=== PATIENT | male | born 1960 | race Caucasian/White ===

== ENCOUNTER 2025-04-18 13:34 | Inpatient (IN) | payer SELFPAY ==
[2025-04-18] VITALS (88 sets, daily range): BP systolic 104–190; BP diastolic 64–115; PULSE 95–119; RESP 7–28; TEMP 35.6–37.6; O2SAT 88–99; BMI 26.6
--- NOTE | 2025-04-18 13:39 | DI.CT.S_ITS ---
PROCEDURE: CT CHEST ABD PEL W CON INDICATIONS: TRUAMA TECHNIQUE: After the administration of intravenous contrast, 5 mm thick sections acquired from the lung apices to the symphysis. 2.5 mm thick coronal and sagittal reformats were acquired. Additional 7 mm thick coronal maximum intensity projection (MIP) reformats acquired through the lungs. Optional 10-minute delayed imaging may be performed from the kidneys to the bladder. For radiation dose reduction, the following was used: automated exposure control, adjustment of mA and/or kV according to patient size. COMPARISON: None. FINDINGS: Image quality: Motion degraded. CHEST: Lower Neck: No enlarged lymph nodes. Thyroid: No thyroid nodules which require sonographic evaluation. Axillae: No enlarged lymph nodes. Chest Wall: No subcutaneous gas. Lungs and Pleura: No pulmonary contusions or lacerations. Patchy ground-glass and mild consolidative opacities within the left upper lobe. Mild opacities at the right lung base. Left lower lobe subpleural nodule measuring 6 mm. Few additional pulmonary micro nodules measuring 3 mm or less. No pneumothorax or hemothorax. Mediastinum: No mediastinal hematomas. Heart size is normal. No pericardial effusion. Thoracic aorta and pulmonary arteries demonstrate normal size and enhancement. No mediastinal or hilar adenopathy. Esophagus is normal in caliber. No hiatal hernia. ABDOMEN: Liver: No lacerations. Gallbladder: No radiopaque gallstones or wall thickening. Biliary ducts: No biliary dilation. Pancreas: Homogenous enhancement. Spleen: Homogenous enhancement without laceration or hematoma. Adrenal Glands: Symmetric enhancement. Indeterminate left adrenal nodule measuring 1.7 cm. Kidneys and Ureters: Symmetric enhancement. No hydronephrosis. No solid mass. No complex renal cystic lesion which requires follow up. Stomach and Bowel: Normal colonic caliber, without significant wall thickening. Diverticulosis without evidence of acute diverticulitis. Normal appendix. Peritoneum: No abnormal intraperitoneal fluid. No free air. Ventral Wall: No hernia. Abdominal Nodes: No retroperitoneal or mesenteric adenopathy by size criteria. Vessels: Aorta and inferior vena cava are normal in size. Atherosclerotic vascular calcifications. PELVIS: Pelvic Organs: Right testicle appears to be within the inguinal canal. Bladder: Decompressed with a Forte catheter in place, limiting evaluation. Pelvic Nodes: No enlarged lymph nodes. Miscellaneous: No inguinal hernias are seen. Bones: Pelvic ring and hip joints appear intact. No displaced rib fractures. IMPRESSION: 1. No evidence of traumatic injury to the chest, abdomen or pelvis. 2. Opacities within the left upper lobe and right lung base concerning for infection, recommend follow-up imaging. 3. Left lower lobe lobe subpleural nodule measuring 6 mm. Recommend follow-up CT chest in 6-12 months. 4. Indeterminate left adrenal nodule measuring 1.7 cm, recommend nonurgent adrenal protocol MRI or CT. 5. The right testicle appears to be within the inguinal canal, recommend correlation with physical exam for undescended testicle. Approved by: Sammy Bryan M.D. on 04/18/2025 at 15:24
--- NOTE | 2025-04-18 13:43 | ED.AMS ---
HPI - Altered Mental Status General Chief Complaint: Altered Mental Status Stated Complaint: AMS Time Seen by Provider: 04/18/25 13:39 History of Present Illness HPI narrative: Patient brought in by ambulance from local hotel for altered mental status. Blood sugar 84. Welfare check/call was made as patient was last seen yesterday. EMS state they arrived to find him in pronate position on the floor with feces and urine on him. There was a bottle of vodka next to him. Patient is only able to answer his name. He screams out very loudly and uncontrollably. Patient is striking out with his fist towards staff. At times he has escalated with agitation. There is black likely coffee-ground emesis covering his face and mouth hand inside his mouth. No gross deformities of the extremities although he points towards his pelvis as source of pain. Patient arrives by EMS naked. Daughter is at bedside. Daughter states patient just arrived from [place] last . He is here because his sister, is in hospice. Daughter states patient has no history of heart attack strokes diabetes seizures alcohol abuse liver disease drug abuse or alcohol abuse. This is never happened to him before. She dropped him off at 7:00 p.m. last night at the hotel. Related Data Allergies Allergy/AdvReac Type Severity Reaction Status Date / Time No Allergy Information Allergy Unverified 04/18/25 15:47 Available Review of Systems Review of Systems Narrative: GENERAL: Negative chills, fatigue, malaise, fever, sweats. HEENT: Negative sinus pain, ear pain, sore throat RESPIRATORY: Negative dyspnea, cough CARDIOVASCULAR: Negative chest pain, palpitations GASTROINTESTINAL: Positive vomiting, nausea, abdominal pain : Negative dysuria, frequency, hematuria MUSCULOSKELETAL: Negative muscle or bony pain SKIN: Negative rash, skin lesions NEUROLOGIC: Negative weakness, numbness Psychiatric: Positive anxiety positive agitation ROS Unobtainable: All systems reviewed & are unremarkable except as noted in HPI and below Patient History Social History Smoking Status: Unknown if ever smoked Exam Narrative Exam Narrative: GENERAL: in no distress, not toxic not dyspneic HEAD: Normocephalic. EYES: Pupils equal round ENT: Mucous membranes moist. NECK: Trachea midline. CARDIOVASCULAR: Regular rate and rhythm RESPIRATORY: Clear to auscultation. Breath sounds equal bilaterally. No wheezes, rales, or rhonchi. GASTROINTESTINAL: Abdomen soft, non-tender, examination of the genitalia. Both testicles are in the scrotal sac. BACK: No flank tenderness. EXTREMITIES: No gross deformities. NEURO: Patient answers to his name. He will say his name. It is clear but at times slurred. No facial droop moving all 4 extremities but needs redirecting. SKIN: Warm and dry PSYCH: Patient is anxious. He needs constant redirecting. Initial Vital Signs Initial Vital Signs: Vital Signs Pulse Oximetry 99 04/18/25 13:37 Course Orders Ordered: Sodium Chloride (Normal Saline 0.9%) 1,000 mls @ 100 mls/hr IV CONT LINDY Last Admin: 04/18/25 18:24 Dose: 100 mls/hr Documented By: RLC Thiamine HCl 100 mg/ Sodium (Chloride) 101 mls @ 404 mls/hr IV DAILY LINDY Piperacillin Sod/Tazobactam (Sod 3.375 gm/ Sodium Chloride) 100 mls @ 25 mls/hr IV Q8H LINDY Last Infusion: 04/19/25 06:40 Dose: Infused Documented By: Admin: 04/19/25 02:37 Dose: 25 mls/hr Documented By: FM Vancomycin HCl (Vancomycin) 1,000 mg in 200 mls @ 200 mls/hr IV Q32H LINDY Midazolam HCl 50 mg/ Dextrose 50 mls @ 5 mls/hr IV TITRATE PRN; Protocol PRN Reason: Sedation Last Admin: 04/19/25 08:11 Dose: 1 mg/hr, 1 mls/hr Documented By: FM Propofol (Diprivan) 1,000 mg in 100 mls @ 2.523 mls/hr IV NOW ONE; Protocol Stop: 04/20/25 23:46 Last Titration: 04/19/25 08:18 Dose: 25 mcg/kg/min, 12.615 mls/hr Documented By: Admin: 04/19/25 07:30 Dose: 5 mcg/kg/min, 2.523 mls/hr Documented By: FM NOREPINEPHRINE BIT/0.9 % NACL (Norepinephr 4 Mg/250-0.9% Nacl) 4 mg in 250 mls @ 31.538 mls/hr IV TITRATE LINDY; Protocol Last Admin: 04/19/25 08:22 Dose: 0.1 mcg/kg/min, 31.538 mls/hr Documented By: FM Lactulose (Lactulose 20 Gm/30 Ml Solution) 20 gm PO TID [facility] Last Admin: 04/19/25 02:27 Dose: Not Given Documented By: Admin: 04/18/25 18:41 Dose: Not Given Documented By: BRITTA Lorazepam (Lorazepam 2 Mg/Ml Inj) 0 mg IV CIWAPRN PRN; Protocol PRN Reason: Alcohol Withdrawal Lorazepam (Lorazepam 1 Mg Tablet) 0 mg PO CIWAPRN PRN; Protocol PRN Reason: Alcohol Withdrawal Multivitamins (Multivitamin 1 Tablet) 1 tab PO DAILY [facility] Naloxone HCl (Naloxone 0.4 Mg/Ml Vial) 0.2 mg IV Q2MIN PRN PRN Reason: Opiate Reversal Pantoprazole Sodium (Pantoprazole 40 Mg Vial) 40 mg IV BID [facility] Last Admin: 04/19/25 00:05 Dose: 40 mg Documented By: DONTE Vancomycin HCl (Vancomycin Per Pharmacy) 1 request MISC NOW PRN PRN Reason: Sepsis Vancomycin HCl (Vancomycin Trough) 1 request MISC 2030 LINDY Stop: 04/22/25 20:31 Discontinued Medications Haloperidol (Haloperidol 5 Mg/Ml Vial) 5 mg IM NOW ONE Stop: 04/18/25 13:50 Last Admin: 04/18/25 13:54 Dose: 5 mg Documented By: BRITTA Haloperidol (Haloperidol 5 Mg/Ml Vial) 5 mg IV Q1HR PRN PRN Reason: Hallucinations Heparin Sodium (Porcine) (Heparin 5,000 Unit/Ml Vial) 5,000 unit SUBCUT Q8HR [facility] Sodium Chloride (Normal Saline 0.9%) 1,000 mls @ 1,000 mls/hr IV BOLUS ONE Stop: 04/18/25 16:18 Last Infusion: 04/18/25 17:03 Dose: Infused Documented By: Admin: 04/18/25 15:35 Dose: 1,000 mls/hr Documented By: BRITTA dexmedeTOMIDine in 0.9 % NaCL (Precedex) 400 mcg in 100 mls @ 4.205 mls/hr IV PROTOCOL [facility]; Protocol Piperacillin Sod/Tazobactam (Sod 3.375 gm/ Sodium Chloride) 100 mls @ 25 mls/hr IV Q8H [facility] Last Infusion: 04/19/25 00:44 Dose: Infused Documented By: Admin: 04/18/25 20:43 Dose: 25 mls/hr Documented By: DONTE Vancomycin HCl/Dextrose (Vancomycin) 1,500 mg in 300 mls @ 150 mls/hr IV NOW LINDY Stop: 04/19/25 02:00 Piperacillin Sod/Tazobactam (Sod 3.375 gm/ Sodium Chloride) 100 mls @ 200 mls/hr IV NOW ONE Stop: 04/18/25 21:44 Last Admin: 04/19/25 02:26 Dose: Not Given Documented By: SHANE Lactulose (Lactulose 20 Gm/30 Ml Solution) 20 gm FL NOW ONE Stop: 04/18/25 16:34 Last Admin: 04/18/25 17:03 Dose: 20 gm Documented By: KLEVER Lorazepam (Lorazepam 2 Mg/Ml Inj) 2 mg IV NOW ONE Stop: 04/18/25 13:40 Last Admin: 04/18/25 13:48 Dose: 2 mg Documented By: BRITTA Phenobarbital (Phenobarbital 65 Mg/Ml Vial) 65 mg IV Q6H LINDY Stop: 04/21/25 17:44 Last Admin: 04/18/25 18:24 Dose: 65 mg Documented By: BRITTA Vital Signs Vital signs: Vital Signs - 8 hr 04/18/25 13:37 04/18/25 13:42 04/18/25 13:45 Temperature Pulse Rate 95 H 97 H Respiratory Rate 24 23 Blood Pressure Pulse Oximetry 99 Oxygen Delivery Method Oxygen Flow Rate 04/18/25 13:45 04/18/25 13:50 04/18/25 13:51 Temperature Pulse Rate 110 H 101 H Respiratory Rate 24 21 Blood Pressure 131/97 H 130/100 H Pulse Oximetry 88 L 97 Oxygen Delivery Method Room Air Oxygen Flow Rate 04/18/25 13:51 04/18/25 13:55 04/18/25 14:00 Temperature Pulse Rate 101 H 107 H 112 H Respiratory Rate 24 28 H 23 Blood Pressure Pulse Oximetry 94 95 93 Oxygen Delivery Method Oxygen Flow Rate 04/18/25 14:05 04/18/25 14:05 04/18/25 14:10 Temperature Pulse Rate 114 H 117 H Respiratory Rate 19 20 Blood Pressure 141/96 H Pulse Oximetry 95 94 Oxygen Delivery Method Oxygen Flow Rate 04/18/25 14:11 04/18/25 14:11 04/18/25 14:15 Temperature Pulse Rate 116 H Respiratory Rate 18 Blood Pressure 190/115 H 188/98 H Pulse Oximetry 94 Oxygen Delivery Method Oxygen Flow Rate 04/18/25 14:15 04/18/25 14:20 04/18/25 14:20 Temperature Pulse Rate 114 H 113 H Respiratory Rate 16 16 Blood Pressure 187/77 H Pulse Oximetry 94 Oxygen Delivery Method Oxygen Flow Rate 04/18/25 14:25 04/18/25 14:25 04/18/25 14:28 Temperature Pulse Rate 109 H 113 H Respiratory Rate 15 18 Blood Pressure 167/74 H Pulse Oximetry 95 93 Oxygen Delivery Method Oxygen Flow Rate 04/18/25 14:28 04/18/25 14:30 04/18/25 14:30 Temperature Pulse Rate 112 H Respiratory Rate 13 Blood Pressure 163/70 H 173/82 H Pulse Oximetry 92 Oxygen Delivery Method Oxygen Flow Rate 04/18/25 14:35 04/18/25 14:35 04/18/25 14:40 Temperature Pulse Rate 109 H 107 H Respiratory Rate 12 12 Blood Pressure 166/88 H Pulse Oximetry 96 92 Oxygen Delivery Method Oxygen Flow Rate 04/18/25 14:40 04/18/25 14:45 04/18/25 14:45 Temperature Pulse Rate 104 H Respiratory Rate 19 Blood Pressure 156/76 H 154/82 H Pulse Oximetry 91 Oxygen Delivery Method Oxygen Flow Rate 04/18/25 14:50 04/18/25 14:50 04/18/25 14:55 Temperature 96.1 F L Pulse Rate 100 H 100 H Respiratory Rate 16 17 Blood Pressure 160/87 H Pulse Oximetry 95 95 Oxygen Delivery Method Oxygen Flow Rate 04/18/25 14:55 04/18/25 15:00 04/18/25 15:00 Temperature Pulse Rate 101 H Respiratory Rate 17 Blood Pressure 153/83 H 148/75 H Pulse Oximetry 95 Oxygen Delivery Method Oxygen Flow Rate 04/18/25 15:05 04/18/25 15:05 04/18/25 15:10 Temperature Pulse Rate 100 H 100 H Respiratory Rate 15 8 L Blood Pressure 140/69 Pulse Oximetry 95 96 Oxygen Delivery Method Oxygen Flow Rate 04/18/25 15:10 04/18/25 15:15 04/18/25 15:15 Temperature Pulse Rate 100 H Respiratory Rate 7 L Blood Pressure 132/64 134/70 Pulse Oximetry 96 Oxygen Delivery Method Oxygen Flow Rate 04/18/25 15:17 04/18/25 15:17 04/18/25 15:18 Temperature Pulse Rate 101 H 101 H Respiratory Rate 7 L 8 L Blood Pressure 140/74 Pulse Oximetry 96 96 Oxygen Delivery Method Oxygen Flow Rate 04/18/25 15:18 04/18/25 15:19 04/18/25 15:19 Temperature Pulse Rate 101 H Respiratory Rate 10 L Blood Pressure 134/68 129/69 Pulse Oximetry 96 Oxygen Delivery Method Oxygen Flow Rate 04/18/25 15:20 04/18/25 15:20 04/18/25 15:21 Temperature Pulse Rate 102 H 101 H Respiratory Rate 10 L 16 Blood Pressure 126/72 Pulse Oximetry 96 97 Oxygen Delivery Method Oxygen Flow Rate 04/18/25 15:21 04/18/25 15:22 04/18/25 15:22 Temperature Pulse Rate 101 H Respiratory Rate 15 Blood Pressure 127/69 135/70 Pulse Oximetry 96 Oxygen Delivery Method Oxygen Flow Rate 04/18/25 15:25 04/18/25 15:30 04/18/25 15:30 Temperature Pulse Rate 101 H 101 H Respiratory Rate 9 L 8 L Blood Pressure 132/73 Pulse Oximetry 96 96 Oxygen Delivery Method Oxygen Flow Rate 04/18/25 15:35 04/18/25 15:40 04/18/25 15:45 Temperature Pulse Rate 102 H 101 H 101 H Respiratory Rate 8 L 8 L 8 L Blood Pressure Pulse Oximetry 95 95 95 Oxygen Delivery Method Oxygen Flow Rate 04/18/25 15:45 04/18/25 15:50 04/18/25 15:55 Temperature Pulse Rate 101 H 101 H Respiratory Rate 8 L 8 L Blood Pressure 128/70 Pulse Oximetry 96 96 Oxygen Delivery Method Oxygen Flow Rate 04/18/25 16:00 04/18/25 16:00 04/18/25 16:15 Temperature Pulse Rate 100 H Respiratory Rate 8 L Blood Pressure 137/71 134/73 Pulse Oximetry 96 Oxygen Delivery Method Nasal Cannula Oxygen Flow Rate 1 04/18/25 16:15 04/18/25 16:30 04/18/25 16:30 Temperature 99.7 F H Pulse Rate 102 H 101 H Respiratory Rate 8 L 9 L Blood Pressure 143/78 H Pulse Oximetry 94 96 Oxygen Delivery Method Nasal Cannula Oxygen Flow Rate 1 MDM - Altered Mental Status Lab Data 04/19/25 04:23 04/19/25 04:23 Labs: Lab Results 1004/18/25 04/18/25 Range/Units 13:30 13:30 13:40 WBC 11.4 H (4.5-11.0) X10^3/uL RBC 5.71 (4.5-5.9) X10^6/uL Hgb 15.5 (13.5-17.5) g/dL Hct 48.7 (41-53) % MCV 85.2 (80-100) fL MCH 27.2 (26-34) PG MCHC 31.9 (30-36) % RDW 13.9 (11.6-14.8) % Plt Count 344 (150-400) X10^3/uL Neut % (Auto) 86.1 H (50-75) % Lymph % (Auto) 4.8 L (25-40) % [place] % (Auto) 8.6 (3-14) % Eos % (Auto) 0.0 L (2-4) % Baso % (Auto) 0.5 (0-2) % Neut # (Auto) 9800 H (3163-3362) /uL Lymph # (Auto) 500 L (2367-0912) /uL [place] # (Auto) 1000 H (0-900) /uL Eos # (Auto) 0 (0-450) /uL Baso # (Auto) 100 (0-100) /uL PT 11.0 (9.4-12.5) SECONDS INR 1.0 (0.9-1.3) APTT 31 (25.1-36.5) SECONDS ABG Sample Site ABG pH (7.35-7.45) ABG pCO2 (35-45) mmHg ABG pO2 (80-100) mmHg ABG HCO3 (23-27) mmol/L ABG Total CO2 (23-27) mmol/L ABG O2 Saturation (95-100) % ABG Base Excess (-2-3) mmol/L Nakul Test VBG pH (7.33-7.43) VBG pCO2 (45-50) mmHg VBG pO2 (35-45) mmHg VBG HCO3 (24-28) mmol/L VBG Total CO2 (24-29) mmol/L VBG O2 Saturation (70-75) % VBG Base Excess (0-4) mmol/L Sodium (137-145) mmol/L Potassium (3.4-5.1) mmol/L Chloride (98-107) mmol/L Carbon Dioxide (22-32) mmol/L BUN (9-20) mg/dL Creatinine (0.66-1.25) mg/dL Estimated GFR (>60) mL/min BUN/Creatinine Ratio (6-22) Glucose (70-99) mg/dL Lactate 5.0 H* (0.7-2.1) mmol/L Calcium (8.4-10.2) mg/dL Total Bilirubin (0.2-1.3) mg/dL AST (17-59) IU/L ALT (<50) IU/L Alkaline Phosphatase (38-126) U/L Ammonia (9-30) umol/L Total Creatine Kinase 6660 H Cancelled (55-170) U/L Troponin I 0.086 H (0.01-0.034) ng/mL Total Protein (6.3-8.2) g/dL Albumin (3.5-5.0) g/dL Globulin (1.7-4.1) g/dL Albumin/Globulin Ratio (1.0-2.8) Lipase (23-300) U/L Procalcitonin 3.41 H (<0.5) ng/mL U Opiates 300ng/mL cut (Negative) Ur Oxycodone Screen (Negative) Urine Methadone Screen (Negative) Ur Barbiturates Screen (Negative) U Tricyclic Antidepress (Negative) Ur Phencyclidine Scrn (Negative) Ur Amphetamines Screen (Negative) U Methamphetamines Scrn (Negative) Ur MDMA Scrn (Ecstasy) (Negative) U Benzodiazepines Scrn (Negative) Urine Cocaine Screen (Negative) U Marijuana (THC) Screen (Negative) Urine pH (Normal) Urine Specific [place] (Normal) Ethyl Alcohol < 10 (<10) mg/dL Ur Creatinine (Normal) Blood Type B Positive Antibody Screen Negative 04/18/25 04/18/25 04/18/25 Range/Units 13:53 14:10 14:15 WBC (4.5-11.0) X10^3/uL RBC (4.5-5.9) X10^6/uL Hgb (13.5-17.5) g/dL Hct (41-53) % MCV (80-100) fL MCH (26-34) PG MCHC (30-36) % RDW (11.6-14.8) % Plt Count (150-400) X10^3/uL Neut % (Auto) (50-75) % Lymph % (Auto) (25-40) % [place]ades % (Auto) (3-14) % Eos % (Auto) (2-4) % Baso % (Auto) (0-2) % Neut # (Auto) (0302-2135) /uL Lymph # (Auto) (5211-9265) /uL [place] # (Auto) (0-900) /uL Eos # (Auto) (0-450) /uL Baso # (Auto) (0-100) /uL PT (9.4-12.5) SECONDS INR (0.9-1.3) APTT (25.1-36.5) SECONDS ABG Sample Site ABG pH (7.35-7.45) ABG pCO2 (35-45) mmHg ABG pO2 (80-100) mmHg ABG HCO3 (23-27) mmol/L ABG Total CO2 (23-27) mmol/L ABG O2 Saturation (95-100) % ABG Base Excess (-2-3) mmol/L Nakul Test VBG pH (7.33-7.43) VBG pCO2 (45-50) mmHg VBG pO2 (35-45) mmHg VBG HCO3 (24-28) mmol/L VBG Total CO2 (24-29) mmol/L VBG O2 Saturation (70-75) % VBG Base Excess (0-4) mmol/L Sodium 143 (137-145) mmol/L Potassium 5.2 H (3.4-5.1) mmol/L Chloride 105 (98-107) mmol/L Carbon Dioxide 16 L (22-32) mmol/L BUN 31 H (9-20) mg/dL Creatinine 2.10 H (0.66-1.25) mg/dL Estimated GFR 35 L (>60) mL/min BUN/Creatinine Ratio 14.8 (6-22) Glucose 100 H (70-99) mg/dL Lactate (0.7-2.1) mmol/L Calcium 8.6 (8.4-10.2) mg/dL Total Bilirubin 0.6 (0.2-1.3) mg/dL AST 128 H (17-59) IU/L ALT 74 H (<50) IU/L Alkaline Phosphatase 73 (38-126) U/L Ammonia 86 H (9-30) umol/L Total Creatine Kinase (55-170) U/L Troponin I (0.01-0.034) ng/mL Total Protein 8.1 (6.3-8.2) g/dL Albumin 4.8 (3.5-5.0) g/dL Globulin 3.3 (1.7-4.1) g/dL Albumin/Globulin Ratio 1.5 (1.0-2.8) Lipase 103 (23-300) U/L Procalcitonin (<0.5) ng/mL U Opiates 300ng/mL cut Positive H (Negative) Ur Oxycodone Screen Negative (Negative) Urine Methadone Screen Positive H (Negative) Ur Barbiturates Screen Negative (Negative) U Tricyclic Antidepress Negative (Negative) Ur Phencyclidine Scrn Negative (Negative) Ur Amphetamines Screen Positive H (Negative) U Methamphetamines Scrn Positive H (Negative) Ur MDMA Scrn (Ecstasy) Positive H (Negative) U Benzodiazepines Scrn Negative (Negative) Urine Cocaine Screen Negative (Negative) U Marijuana (THC) Screen Negative (Negative) Urine pH Normal (Normal) Urine Specific [place] Normal (Normal) Ethyl Alcohol (<10) mg/dL Ur Creatinine Normal (Normal) Blood Type Antibody Screen 04/18/25 04/18/25 04/18/25 Range/Units 14:17 14:39 15:47 WBC (4.5-11.0) X10^3/uL RBC (4.5-5.9) X10^6/uL Hgb (13.5-17.5) g/dL Hct (41-53) % MCV (80-100) fL MCH (26-34) PG MCHC (30-36) % RDW (11.6-14.8) % Plt Count (150-400) X10^3/uL Neut % (Auto) (50-75) % Lymph % (Auto) (25-40) % Glades % (Auto) (3-14) % Eos % (Auto) (2-4) % Baso % (Auto) (0-2) % Neut # (Auto) (7783-9605) /uL Lymph # (Auto) (4904-1455) /uL [place] # (Auto) (0-900) /uL Eos # (Auto) (0-450) /uL Baso # (Auto) (0-100) /uL PT (9.4-12.5) SECONDS INR (0.9-1.3) APTT (25.1-36.5) SECONDS ABG Sample Site Right radial ABG pH 7.21 L* (7.35-7.45) ABG pCO2 46.8 H (35-45) mmHg ABG pO2 55 L (80-100) mmHg ABG HCO3 19 L (23-27) mmol/L ABG Total CO2 18 L (23-27) mmol/L ABG O2 Saturation 81 L* (95-100) % ABG Base Excess -9.0 L (-2-3) mmol/L Nakul Test Yes, passed VBG pH 7.14 L* (7.33-7.43) VBG pCO2 57.1 H (45-50) mmHg VBG pO2 39 (35-45) mmHg VBG HCO3 19 L (24-28) mmol/L VBG Total CO2 19 L (24-29) mmol/L VBG O2 Saturation 56 L (70-75) % VBG Base Excess -10.5 L (0-4) mmol/L Sodium (137-145) mmol/L Potassium (3.4-5.1) mmol/L Chloride (98-107) mmol/L Carbon Dioxide (22-32) mmol/L BUN (9-20) mg/dL Creatinine (0.66-1.25) mg/dL Estimated GFR (>60) mL/min BUN/Creatinine Ratio (6-22) Glucose (70-99) mg/dL Lactate 2.1 (0.7-2.1) mmol/L Calcium (8.4-10.2) mg/dL Total Bilirubin (0.2-1.3) mg/dL AST (17-59) IU/L ALT (<50) IU/L Alkaline Phosphatase (38-126) U/L Ammonia (9-30) umol/L Total Creatine Kinase (55-170) U/L Troponin I (0.01-0.034) ng/mL Total Protein (6.3-8.2) g/dL Albumin (3.5-5.0) g/dL Globulin (1.7-4.1) g/dL Albumin/Globulin Ratio (1.0-2.8) Lipase (23-300) U/L Procalcitonin (<0.5) ng/mL U Opiates 300ng/mL cut (Negative) Ur Oxycodone Screen (Negative) Urine Methadone Screen (Negative) Ur Barbiturates Screen (Negative) U Tricyclic Antidepress (Negative) Ur Phencyclidine Scrn (Negative) Ur Amphetamines Screen (Negative) U Methamphetamines Scrn (Negative) Ur MDMA Scrn (Ecstasy) (Negative) U Benzodiazepines Scrn (Negative) Urine Cocaine Screen (Negative) U Marijuana (THC) Screen (Negative) Urine pH (Normal) Urine Specific [place] (Normal) Ethyl Alcohol (<10) mg/dL Ur Creatinine (Normal) Blood Type Antibody Screen Point of Care Testing Glucose POC [address] scan - head: Radiologist's Impression: [address] [address] [address] Scan Report Signed Patient: Beka Phoenix MR#: [id number] : 1960 Acct:[id number] Age/Sex: 64 / M Date of Service: 04/18/25 Loc: ED Accession Number: [id number] Procedure: CT head/brain wo con Ordering Provider: Anibal Mary MD PROCEDURE: CT HEAD/BRAIN WO CON INDICATIONS: Trauma TECHNIQUE: Noncontrast 4.5 mm thick angled axial sections acquired from the foramen magnum to the vertex, with coronal and sagittal reformats. For radiation dose reduction, the following was used: automated exposure control, adjustment of mA and/or kV according to patient size. COMPARISON: [facility], CT, CT CERVICAL SPINE WO CON, 04/18/2025, 14:22. FINDINGS: Image quality: This examination is limited by involuntary motion artifact. Images are repeated, with some improvement. CSF spaces: Basal cisterns are patent. No extra-axial fluid collections. The ventricles are symmetric in size and shape. Brain: No intracranial bleeds or mass effect. There is cerebral volume loss, with resultant ventricular and sulcal prominence. There are periventricular and deep white matter chronic small vessel ischemic changes. There is intracranial internal carotid artery atherosclerosis. Skull and face: Calvarium and visualized facial bones appear intact, without suspicious lesions. Sinuses: Scattered moderate mucosal thickening can be seen within the maxillary sinuses. Minimal mucosal thickening can be seen elsewhere within the paranasal sinuses. No abnormal fluid is seen within the mastoid air cells. IMPRESSION: Motion limited study, yet without acute intracranial hemorrhage or other significant acute abnormality. Dictated by: Umer Graham M.D. on 04/18/2025 at 13:32 Approved by: Umer Graham M.D. on 04/18/2025 at 13:33 CT - cervical spine: Radiologist's Impression: [place] [address] CT Scan Report Signed Patient: Beka Phoenix MR#: [id number] : 1960 Acct:[id number] Age/Sex: 64 / M Date of Service: 04/18/25 Loc: ED Accession Number: [id number] Procedure: CT cervical spine wo con Ordering Provider: Anibal Mary MD PROCEDURE: CT CERVICAL SPINE WO CON INDICATIONS: Trauma TECHNIQUE: Noncontrast 3 mm thick sections acquired from the skull base to the T4 level. Sagittal and coronal reformats were then constructed. For radiation dose reduction, the following was used: automated exposure control, adjustment of mA and/or kV according to patient size. COMPARISON: None. FINDINGS: Image quality: Diagnostic. Bones: No acute fractures or dislocations. No acute compression fractures of the vertebral bodies. Craniocervical junction is intact. C1-C2 relationship is preserved. Visualized superior ribs are intact. Moderate multilevel cervical spondylosis. Soft tissues: Prevertebral soft tissues are normal in thickness. No paravertebral hematomas. No apical pneumothoraces. IMPRESSION: No displaced fracture or traumatic subluxation. Moderate multilevel cervical spondylosis. Dictated by: North Barraza M.D. on 04/18/2025 at 15:29 Approved by: North Barraza M.D. on 04/18/2025 at 15:32 CT chest abdomen pelvis: Radiologist's Impression: [address] [address] [address] Scan Report Signed Patient: Beka Phoenix MR#: [id number] : 1960 Acct:[id number] Age/Sex: 64 / M Date of Service: 04/18/25 Loc: ED Accession Number: [id number] Procedure: CT chest abd pel w con Ordering Provider: Anibal Mary MD PROCEDURE: CT CHEST ABD PEL W CON INDICATIONS: TRUAMA TECHNIQUE: After the administration of intravenous contrast, 5 mm thick sections acquired from the lung apices to the symphysis. 2.5 mm thick coronal and sagittal reformats were acquired. Additional 7 mm thick coronal maximum intensity projection (MIP) reformats acquired through the lungs. Optional 10-minute delayed imaging may be performed from the kidneys to the bladder. For radiation dose reduction, the following was used: automated exposure control, adjustment of mA and/or kV according to patient size. COMPARISON: None. FINDINGS: Image quality: Motion degraded. CHEST: Lower Neck: No enlarged lymph nodes. Thyroid: No thyroid nodules which require sonographic evaluation. Axillae: No enlarged lymph nodes. Chest Wall: No subcutaneous gas. Lungs and Pleura: No pulmonary contusions or lacerations. Patchy ground-glass and mild consolidative opacities within the left upper lobe. Mild opacities at the right lung base. Left lower lobe subpleural nodule measuring 6 mm. Few additional pulmonary micro nodules measuring 3 mm or less. No pneumothorax or hemothorax. Mediastinum: No mediastinal hematomas. Heart size is normal. No pericardial effusion. Thoracic aorta and pulmonary arteries demonstrate normal size and enhancement. No mediastinal or hilar adenopathy. Esophagus is normal in caliber. No hiatal hernia. ABDOMEN: Liver: No lacerations. Gallbladder: No radiopaque gallstones or wall thickening. Biliary ducts: No biliary dilation. Pancreas: Homogenous enhancement. Spleen: Homogenous enhancement without laceration or hematoma. Adrenal Glands: Symmetric enhancement. Indeterminate left adrenal nodule measuring 1.7 cm. Kidneys and Ureters: Symmetric enhancement. No hydronephrosis. No solid mass. No complex renal cystic lesion which requires follow up. Stomach and Bowel: Normal colonic caliber, without significant wall thickening. Diverticulosis without evidence of acute diverticulitis. Normal appendix. Peritoneum: No abnormal intraperitoneal fluid. No free air. Ventral Wall: No hernia. Abdominal Nodes: No retroperitoneal or mesenteric adenopathy by size criteria. Vessels: Aorta and inferior vena cava are normal in size. Atherosclerotic vascular calcifications. PELVIS: Pelvic Organs: Right testicle appears to be within the inguinal canal. Bladder: Decompressed with a Forte catheter in place, limiting evaluation. Pelvic Nodes: No enlarged lymph nodes. Miscellaneous: No inguinal hernias are seen. Bones: Pelvic ring and hip joints appear intact. No displaced rib fractures. IMPRESSION: 1. No evidence of traumatic injury to the chest, abdomen or pelvis. 2. Opacities within the left upper lobe and right lung base concerning for infection, recommend follow-up imaging. 3. Left lower lobe lobe subpleural nodule measuring 6 mm. Recommend follow-up CT chest in 6-12 months. 4. Indeterminate left adrenal nodule measuring 1.7 cm, recommend nonurgent adrenal protocol MRI or CT. 5. The right testicle appears to be within the inguinal canal, recommend correlation with physical exam for undescended testicle. Approved by: Sammy Bryan M.D. on 04/18/2025 at 15:24 [facility] Narrative Medical decision making narrative: Patient brought in by ambulance from local [facility] for altered mental status. Blood sugar 84. Welfare check/call was made as patient was last seen yesterday. EMS state they arrived to find him in pronate position on the floor with feces and urine on him. There was a bottle of vodka next to him. Patient is only able to answer his name. He screams out very loudly and uncontrollably. Patient is striking out with his fist towards staff. At times he has escalated with agitation. There is black likely coffee-ground emesis covering his face and mouth hand inside his mouth. No gross deformities of the extremities although he points towards his pelvis as source of pain. Patient arrives by EMS naked. Daughter is at bedside. Daughter states patient just arrived from [place] last . He is here because his sister, is in hospice. Daughter states patient has no history of heart attack strokes diabetes seizures alcohol abuse liver disease drug abuse or alcohol abuse. This is never happened to him before. She dropped him off at 7:00 p.m. last night at the hotel. MDM After history and exam, CT head CT angio head and neck CT chest abdomen pelvis EKG CBC CMP ammonia drug screen alcohol level urinalysis PT PTT INR type and screen Differential considered: Includes but not limited to stroke STEMI rhabdomyolysis seizure alcohol withdrawal delirium tremens substance abuse GI bleed hepatic encephalopathy Medical records reviewed: No recent visit for this complaint Lab Test results independently reviewed as above. Pertinent findings: WBC 11.4 hemoglobin 15.5 platelets 344 INR 1.0 ABG 7.2, 46.8, 55 sodium 143 potassium 5.2 BUN 31 creatinine 2.1 GFR 35 lactate 5.0 AST 128 ALT 74 total CK 6660 ammonia 86 troponin 0.086 procalcitonin 3.4 drug screen positive opiates positive methadone positive amphetamines positive methamphetamines positive MDMA alcohol negative Independently reviewed EKG sinus tachycardia rate 102 otherwise normal EKG Imaging studies independently reviewed: CT head no acute finding CT cervical spine no acute finding, CT chest abdomen pelvis no acute finding but possible undescended testicle right inguinal canal Consultations: 4:34 p.m.. I spoke with hospitalist, Dr. Morrison, he will admit patient, I will order lactulose per rectum. You will order Precedex as well as antibiotics for possible aspiration pneumonia. Patient is still requiring soft restraints, I reviewed with him. Soft restraints or not for violent but for pulling at equipment. Re-evaluations: 3:41 p.m.. Patient not agitated this time. However still requiring soft restraints. 4:52 p.m.. Updated daughter results. He will be staying here overnight 5:00 p.m.. Please see agvw-rz-[id number] notes. Restraints discontinued. Orders in to discontinue. Discussion: Appropriate for admission for hepatic encephalopathy altered mental status likely substance induced psychosis, rhabdomyolysis. IV fluids have been started. Troponin likely due to renal function. Acute renal injury Diagnosis: Hepatic encephalopathy, rhabdomyolysis, acute renal injury, polysubstance abuse Discharge Plan Departure Patient Disposition: Admitted As Inpatient Clinical Impression: Acute hepatic encephalopathy, Acute kidney injury Rhabdomyolysis Qualifiers: Rhabdomyolysis type: non-traumatic Qualified Code(s): M62.82 - Rhabdomyolysis GI bleed Qualifiers: GI bleed type/associated pathology: unspecified gastrointestinal hemorrhage type Qualified Code(s): K92.2 - Gastrointestinal hemorrhage, unspecified Admit Date/Time: 04/18/25 16:34 Admit Provider: Mo Morrison Qhkz-ig-Uyaf Restraint Boao-tj-Nbsl Evaluation Nmoi-np-Qjtx #1: Date: 04/18/25 Time: 14:12 Patient Appearance: Unkempt, Disheveled, Bizarre and Inappropriate Level of Consciousness: Disoriented and Inappropriate Speech Pattern: Excessive and Includes Profanity Mood Description: Hostile Ability to Follow Directions: Poor Hallucination Type: None Thought Process: Disorganized Respirations: Normal respiratory rate and Unlabored Cardiac: Regular Rate and Regular Rhythm Circulation: Moves all extremities, peripheral pulses palpable and Skin warm and dry Behavior necessitating restraint: Agitated and Pulling at lines/tubes Restraint Risks: Restricted blood flow, Damaged nerves and Damaged tissue Restraint risks explained to patient: Yes Restraint risks explained to family: Yes Reaction to Intervention: Agitated, Constant Movement Restraint Needs: Continue Restraints Phvl-wm-Fcya #2: Date: 04/18/25 Time: 17:00 Level of Consciousness: Alert, Appropriate, Awake and Follows Commands Speech Pattern: Clear and Coherent Mood Description: Relaxed Ability to Follow Directions: Good Hallucination Type: None Thought Process: Normal Respirations: Normal respiratory rate Cardiac: Regular Rate and Regular Rhythm Circulation: Moves all extremities, peripheral pulses palpable and Skin warm and dry Other risks: Restraints removed Restraint Needs: Discontinue Restraints
[2025-04-18] MEDS: HALOPERIDOL 5 MG/ML VIAL IM (13:54)
--- NOTE | 2025-04-18 13:54 | DI.CT.S_ITS ---
PROCEDURE: CT ANGIO HEAD AND NECK INDICATIONS: Altered mental status TECHNIQUE: After the administration of intravenous contrast, 1 mm thick sections acquired from the aortic arch through the [place] of [place]. 3-dimensional zbtvvyi-oogdbiqfl-fdvusjribo (MIP) and/or volume rendering reformats were acquired of the central intracranial vasculature and neck separately. For radiation dose reduction, the following was used: automated exposure control, adjustment of mA and/or kV according to patient size. COMPARISON: [facility], CT, CT HEAD/BRAIN WO CON, 04/18/2025, 14:22. FINDINGS: Image quality: Diagnostic. BRAIN: CSF spaces: Ventricles are stable in size and configuration. Basal cisterns are patent. No extra-axial fluid collections. Brain: No midline shift. No intracranial masses. No suspicious enhancement. Quintana-white matter interface appears intact. Stable age related senescent changes and sequela of chronic small vessel ischemic disease. Skull and face: Calvarium and facial bones appear intact, without suspicious lesions. Orbits appear normal. Sinuses: Bilateral maxillary sinus mucosal thickening with layering fluid on the left. Mastoid air cells are clear. HEAD CT ANGIOGRAPHY: Anterior circulation: There are atherosclerotic calcifications of the intracranial segments of the internal carotid arteries. Intracranial internal carotid arteries appear patent without high-grade stenosis. There is flow/opacification within the paired anterior cerebral arteries. There is opacification within the middle cerebral arteries. The anterior communicating artery is seen. No aneurysms are seen. No occlusion. Posterior circulation: Visualized portions of the vertebral arteries are patent and join to form a normal appearing basilar artery. No evidence for high-grade stenosis. No occlusions. There is opacification of the posterior cerebral arteries. No aneurysms are seen. NECK CT ANGIOGRAPHY: Carotid system: The great vessels demonstrate a conventional anatomy as they arise from the aortic arch. Atherosclerotic calcifications of the aortic arch are present. The origins of the common carotid arteries appear patent. The common carotid arteries appear patent throughout their visualized courses without high grade stenosis. The bifurcation regions are both patent without high grade stenosis. The internal carotid arteries demonstrate normal calibers and courses. Posterior circulation: The origins of the vertebral arteries both appear patent without hemodynamically significant stenosis. The more superior extracranial portions of both vertebral arteries also demonstrate normal courses and calibers. They join to form a normal appearing basilar artery. Soft tissues: Visualized neck soft tissues demonstrate no suspicious abnormalities. No pathologic adenopathy identified. Upper lobe predominant pulmonary emphysema. Patchy opacity of the left apex with mild tree-in-bud opacities peripherally. Bones: No suspicious bony lesions. Visualized cervical spine appears normally aligned. No acute compression fractures of the vertebral bodies. Moderate multilevel cervical spondylosis. IMPRESSION: No significant intracranial arterial abnormality is seen. No significant abnormality is seen within the arteries of the neck. Patchy opacities of the left lung apex with more peripheral tree-in-bud opacities likely representing infectious or inflammatory process. Recommend short interval follow-up imaging after resolution of acute findings.. Multilevel cervical spondylosis. Atherosclerosis. If there is persistent or high clinical suspicion for acute cerebrovascular ischemia/stroke, more sensitive evaluation with brain MRI can be considered. Any quantitative measurements of stenosis were performed using NASCET criteria. Dictated by: North Barraza M.D. on 04/18/2025 at 15:32 Approved by: North Barraza M.D. on 04/18/2025 at 15:44
[2025-04-18 13:58] LABS: Add Manual Diff / Slide Review NO; Hematocrit 48.7 % (41-53); Hemoglobin 15.5 g/dL (13.5-17.5); Lymphocytes Absolute Auto 500 /uL (1100-4500); Mean Corpuscular HGB Conc 31.9 % (30-36); Mean Corpuscular Hemoglobin 27.2 PG (26-34); Mean Corpuscular Volume 85.2 fL (80-100); Platelet Count 344 X10^3/uL (150-400)
[2025-04-18 14:07] LABS: INR 1.0 (0.9-1.3); Prothrombin Time 11.0 SECONDS (9.4-12.5)
[2025-04-18 14:09] LABS: PTT Partial Thromboplastin Tim 31 SECONDS (25.1-36.5)
[2025-04-18 14:15] LABS: Blood Urea Nitrogen 31 mg/dL (9-20)
[2025-04-18 14:16] LABS: Ethanol (ETOH) < 10 mg/dL (<10)
[2025-04-18 14:26] LABS: Base Excess VBG -10.5 mmol/L (0-4); HCO3 VBG 19 mmol/L (24-28); Oxygen Saturation VBG 56 % (70-75); PCO2 VBG 57.1 mmHg (45-50); PO2 VBG 39 mmHg (35-45); Total CO2 VBG 19 mmol/L (24-29); pH VBG 7.14 (7.33-7.43)
[2025-04-18 14:37] LABS: Ammonia (NH3) 86 umol/L (9-30)
[2025-04-18 14:38] LABS: Alanine Aminotransferase 74 IU/L (<50); Albumin 4.8 g/dL (3.5-5.0); Albumin Globulin Ratio 1.5 (1.0-2.8); Alkaline Phosphatase 73 U/L (38-126); Calcium 8.6 mg/dL (8.4-10.2); Carbon Dioxide 16 mmol/L (22-32); Chloride 105 mmol/L (98-107); Estimated Glomerular Filt Rate 35 mL/min (>60); Globulin 3.3 g/dL (1.7-4.1); Glucose 100 mg/dL (70-99); Lipase 103 U/L (23-300); Potassium 5.2 mmol/L (3.4-5.1); Sodium 143 mmol/L (137-145); Total Protein 8.1 g/dL (6.3-8.2)
[2025-04-18 14:45] LABS: HCO3 ABG 19 mmol/L (23-27); Oxygen Saturation ABG 81 % (95-100); PCO2 ABG 46.8 mmHg (35-45); PO2 ABG 55 mmHg (80-100); TCO2 ABG 18 mmol/L (23-27)
[2025-04-18 14:48] LABS: Ur Creatinine Normal (Normal); Ur Specific Gravity Normal (Normal); Urine MDMA Positive (Negative); Urine Methamphetamines Positive (Negative); Urine THC Negative (Negative); Urine Tricyclic Antidepressant Negative (Negative); Urine pH Normal (Normal)
[2025-04-18 14:50] LABS: Troponin I 0.086 ng/mL (0.01-0.034)
[2025-04-18 14:51] LABS: Lactate (Lactic Acid) 5.0 mmol/L (0.7-2.1)
[2025-04-18 14:52] LABS: HEMOLYSIS 25 (0-50)
[2025-04-18 15:00] LABS: Creatine Kinase 6660 U/L (55-170)
[2025-04-18 15:02] LABS: Procalcitonin 3.41 ng/mL (<0.5)
--- NOTE | 2025-04-18 15:23 | EKG_ITS ---
[address] [address] Test Date: 2025-04-18 Pat Name: Beka Phoenix Department: Room: Gender: Male Nip Wrapper: DEB : 1960 Requested By: Order Number: [id number] Reading MD: Warren Rahman MD Measurements Intervals [place] Rate: 102 P: 59 CO: 182 QRS: 20 QRSD: 78 T: 36 QT: 392 QTc: 510 Interpretive Statements Sinus tachycardia Electronically Signed On 04-29-2025 8:59:30 PST by Warren Rahman MD
[2025-04-18 15:30] LABS: Reflexed Lactate in 2 Hours Y
[2025-04-18] MEDS: SODIUM CHLORIDE 0.9% 1,000 ML 1000 ML IV (15:35)
--- NOTE | 2025-04-18 15:41 | PC.NURSE ---
Pt's daughter and his ex- are in the room. Pt continues to sleep and is unable to offer history. Pt's family denies Hx of alcohol or drug use, stating [place] and is in town because his sibling is on hospice. Pt's daughter suggests he may have gotten into the hospice drugs. MD martinez.
[2025-04-18 16:04] LABS: Lactate 2HR (Lactic Acid Rflx) 2.1 mmol/L (0.7-2.1)
[2025-04-18] MEDS: LACTULOSE 20 GM/30 ML SOLUTION PR (17:03)
--- NOTE | 2025-04-18 17:42 | PC.NURSE ---
Pt's called requesting update. Pt is unable to verbally consent at this time. Pt's daughter was bedside and updated by Dr. Mary. Pt's states she already spoke to her step daughter and still wants an updated from nursing staff. Pt's was advised to call again and another attempt to obtain verbal consent from pt to update her will be obtained.
[2025-04-18 18:05] LABS: Allen Test for ABG Passed? Yes, Passed; Blood Gas Collection Site Right Radial
[2025-04-18] MEDS: SODIUM CHLORIDE 0.9% 1,000 ML 100 ML IV (18:24)
--- NOTE | 2025-04-18 19:30 | PC.NURSE ---
Pt's Karen called for an update. Pt verbally consents to update . requests she be contacted with any news or if pt is unable to speak for himself that she be called for medical decisions. Karen can be reached any time of day or night @ [phone].
--- NOTE | 2025-04-18 19:42 | P.HP_ITS ---
History of Present Illness History of Present Illness Date Patient Seen: 04/18/25 Chief complaint: Encephalopathy agitated delirium NH 3 multidrug us Narrative: Chief complaint: Agitated delirium alcohol and drug use hepatic encephalopathy History of present illness: 04/18: EMS state they arrived to find him in pronate position on the floor with feces and urine on him. There was a bottle of vodka next to him. Patient is only able to answer his name. He screams out very loudly and uncontrollably. Patient is striking out with his fist towards staff. At times he has escalated with agitation. There is black likely coffee-ground emesis covering his face and mouth hand inside his mouth. No gross deformities of the extremities although he points towards his pelvis as source of pain. Patient arrives by EMS naked. Daughter is at bedside. Daughter states patient just arrived from [place] last . He is here because his sister, is in hospice. Daughter states patient has no history of heart attack strokes diabetes seizures alcohol abuse liver disease drug abuse or alcohol abuse. This is never happened to him before. She dropped him off at 7:00 p.m. last night at the hotel. The time of my evaluation patient arouse to pain but then became somnolent again Findings in the emergency room significant for: White blood cell count 11.4 86% neutrophils platelets 344 Arterial blood gas 7 point 2 1 pCO2 47 PO2 55 81% saturated Sodium 143 potassium 5.2 chloride 105 CO2 16 BUN 31 creatinine 2.1 Total bili 0.6 AST 128 ALT 74 Ammonia 86 CK 6700 Troponin 0.086 Procalcitonin 3.41 Urine toxicology positive for opiates, methadone, amphetamines, methamphetamines, MDMA CT abdomen is out pelvis chest IMPRESSION: 1. No evidence of traumatic injury to the chest, abdomen or pelvis. 2. Opacities within the left upper lobe and right lung base concerning for infection, recommend follow-up imaging. 3. Left lower lobe lobe subpleural nodule measuring 6 mm. Recommend follow-up CT chest in 6-12 months. 4. Indeterminate left adrenal nodule measuring 1.7 cm, recommend nonurgent adrenal protocol MRI or CT. 5. The right testicle appears to be within the inguinal canal, recommend correlation with physical exam for undescended testicle. CTA head and neck: Motion limited study, yet without acute intracranial hemorrhage or other significant acute abnormality. No significant abnormality is seen within the arteries of the neck. Patchy opacities of the left lung apex with more peripheral tree-in-bud opacities likely representing infectious or inflammatory process. Recommend short interval follow-up imaging after resolution of acute findings.. Multilevel cervical spondylosis. Atherosclerosis. If there is persistent or high clinical suspicion for acute cerebrovascular ischemia/stroke, more sensitive evaluation with brain MRI can be considered. Physical exam: Patient obtunded responds only to pain briefly opens eyes and moans HEENT black emesis in his mouth Heart rate and rhythm regular no murmurs Lungs coarse rhonchi throughout Ativan nondistended scant 2-0 bowel sounds Extremities 2+ lower extremity edema Assessment and plan: Multifactorial toxic and metabolic encephalopathy with laboratory findings of: * Ammonia 86 suggesting hepatic encephalopathy * Amphetamine methamphetamine MDMA opiates and methadone * Vodka bottle found next patient * Probable sepsis from aspiration pneumonia * Culture blood * Zosyn vancomycin empirically * Lactulose enema administered * Supplemental oxygen * Serial chest x-ray * Aspiration precaution * ICU admission * Neuro checks and vigilance for withdrawal and seizures * Serum prolactin on admission and in 24 hours for possible seizure * IV PPI * ABG q.8 hours x3 DVT prophylaxis: * Contraindicated Code status: * Full code blue Disposition: * ICU admission anticipate at least 3 days of hospitalization after which further direction of care can be determined Time based billing: * 75 minutes were involved in the evaluation of this patient including extensive testing and evaluation [id number] evaluation examination review of chart objective laboratory and imaging findings Meds Home Medications and Allergies Allergies Allergy/AdvReac Type Severity Reaction Status Date / Time No Allergy Information Allergy Unverified 04/18/25 15:47 Available Exam Vital Signs (past 8 hours): - 04/18/25 13:37 04/18/25 13:42 04/18/25 13:45 Temperature Pulse Rate 95 H 97 H Respiratory Rate 24 23 Blood Pressure Pulse Oximetry 99 Oxygen Delivery Method Oxygen Flow Rate 04/18/25 13:45 04/18/25 13:50 04/18/25 13:51 Temperature Pulse Rate 110 H 101 H Respiratory Rate 24 21 Blood Pressure 131/97 H 130/100 H Pulse Oximetry 88 L 97 Oxygen Delivery Method Room Air Oxygen Flow Rate 04/18/25 13:51 04/18/25 13:55 04/18/25 14:00 Temperature Pulse Rate 101 H 107 H 112 H Respiratory Rate 24 28 H 23 Blood Pressure Pulse Oximetry 94 95 93 Oxygen Delivery Method Oxygen Flow Rate 04/18/25 14:05 04/18/25 14:05 04/18/25 14:10 Temperature Pulse Rate 114 H 117 H Respiratory Rate 19 20 Blood Pressure 141/96 H Pulse Oximetry 95 94 Oxygen Delivery Method Oxygen Flow Rate 04/18/25 14:11 04/18/25 14:11 04/18/25 14:15 Temperature Pulse Rate 116 H Respiratory Rate 18 Blood Pressure 190/115 H 188/98 H Pulse Oximetry 94 Oxygen Delivery Method Oxygen Flow Rate 04/18/25 14:15 04/18/25 14:20 04/18/25 14:20 Temperature Pulse Rate 114 H 113 H Respiratory Rate 16 16 Blood Pressure 187/77 H Pulse Oximetry 94 Oxygen Delivery Method Oxygen Flow Rate 04/18/25 14:25 04/18/25 14:25 04/18/25 14:28 Temperature Pulse Rate 109 H 113 H Respiratory Rate 15 18 Blood Pressure 167/74 H Pulse Oximetry 95 93 Oxygen Delivery Method Oxygen Flow Rate 04/18/25 14:28 04/18/25 14:30 04/18/25 14:30 Temperature Pulse Rate 112 H Respiratory Rate 13 Blood Pressure 163/70 H 173/82 H Pulse Oximetry 92 Oxygen Delivery Method Oxygen Flow Rate 04/18/25 14:35 04/18/25 14:35 04/18/25 14:40 Temperature Pulse Rate 109 H 107 H Respiratory Rate 12 12 Blood Pressure 166/88 H Pulse Oximetry 96 92 Oxygen Delivery Method Oxygen Flow Rate 04/18/25 14:40 04/18/25 14:45 04/18/25 14:45 Temperature Pulse Rate 104 H Respiratory Rate 19 Blood Pressure 156/76 H 154/82 H Pulse Oximetry 91 Oxygen Delivery Method Oxygen Flow Rate 04/18/25 14:50 04/18/25 14:50 04/18/25 14:55 Temperature 96.1 F L Pulse Rate 100 H 100 H Respiratory Rate 16 17 Blood Pressure 160/87 H Pulse Oximetry 95 95 Oxygen Delivery Method Oxygen Flow Rate 04/18/25 14:55 04/18/25 15:00 04/18/25 15:00 Temperature Pulse Rate 101 H Respiratory Rate 17 Blood Pressure 153/83 H 148/75 H Pulse Oximetry 95 Oxygen Delivery Method Oxygen Flow Rate 04/18/25 15:05 04/18/25 15:05 04/18/25 15:10 Temperature Pulse Rate 100 H 100 H Respiratory Rate 15 8 L Blood Pressure 140/69 Pulse Oximetry 95 96 Oxygen Delivery Method Oxygen Flow Rate 04/18/25 15:10 04/18/25 15:15 04/18/25 15:15 Temperature Pulse Rate 100 H Respiratory Rate 7 L Blood Pressure 132/64 134/70 Pulse Oximetry 96 Oxygen Delivery Method Oxygen Flow Rate 04/18/25 15:17 04/18/25 15:17 04/18/25 15:18 Temperature Pulse Rate 101 H 101 H Respiratory Rate 7 L 8 L Blood Pressure 140/74 Pulse Oximetry 96 96 Oxygen Delivery Method Oxygen Flow Rate 04/18/25 15:18 04/18/25 15:19 04/18/25 15:19 Temperature Pulse Rate 101 H Respiratory Rate 10 L Blood Pressure 134/68 129/69 Pulse Oximetry 96 Oxygen Delivery Method Oxygen Flow Rate 04/18/25 15:20 04/18/25 15:20 04/18/25 15:21 Temperature Pulse Rate 102 H 101 H Respiratory Rate 10 L 16 Blood Pressure 126/72 Pulse Oximetry 96 97 Oxygen Delivery Method Oxygen Flow Rate 04/18/25 15:21 04/18/25 15:22 04/18/25 15:22 Temperature Pulse Rate 101 H Respiratory Rate 15 Blood Pressure 127/69 135/70 Pulse Oximetry 96 Oxygen Delivery Method Oxygen Flow Rate 04/18/25 15:25 04/18/25 15:30 04/18/25 15:30 Temperature Pulse Rate 101 H 101 H Respiratory Rate 9 L 8 L Blood Pressure 132/73 Pulse Oximetry 96 96 Oxygen Delivery Method Oxygen Flow Rate 04/18/25 15:35 04/18/25 15:40 04/18/25 15:45 Temperature Pulse Rate 102 H 101 H 101 H Respiratory Rate 8 L 8 L 8 L Blood Pressure Pulse Oximetry 95 95 95 Oxygen Delivery Method Oxygen Flow Rate 04/18/25 15:45 04/18/25 15:50 04/18/25 15:55 Temperature Pulse Rate 101 H 101 H Respiratory Rate 8 L 8 L Blood Pressure 128/70 Pulse Oximetry 96 96 Oxygen Delivery Method Oxygen Flow Rate 04/18/25 16:00 04/18/25 16:00 04/18/25 16:15 Temperature Pulse Rate 100 H Respiratory Rate 8 L Blood Pressure 137/71 134/73 Pulse Oximetry 96 Oxygen Delivery Method Nasal Cannula Oxygen Flow Rate 1 04/18/25 16:15 04/18/25 16:30 04/18/25 16:30 Temperature 99.7 F H Pulse Rate 102 H 101 H Respiratory Rate 8 L 9 L Blood Pressure 143/78 H Pulse Oximetry 94 96 Oxygen Delivery Method Nasal Cannula Oxygen Flow Rate 1 04/18/25 16:45 04/18/25 16:45 04/18/25 17:00 Temperature Pulse Rate 101 H 104 H Respiratory Rate 8 L 9 L Blood Pressure 144/78 H Pulse Oximetry 96 95 Oxygen Delivery Method Oxygen Flow Rate 04/18/25 17:00 04/18/25 17:15 04/18/25 17:15 Temperature 98.5 F Pulse Rate 104 H Respiratory Rate 10 L Blood Pressure 104/76 114/74 Pulse Oximetry 91 Oxygen Delivery Method Nasal Cannula Oxygen Flow Rate 2 04/18/25 17:30 04/18/25 17:30 04/18/25 17:45 Temperature Pulse Rate 105 H 106 H Respiratory Rate 8 L 9 L Blood Pressure 116/76 Pulse Oximetry 94 94 Oxygen Delivery Method Nasal Cannula Oxygen Flow Rate 2 04/18/25 17:45 Temperature Pulse Rate Respiratory Rate Blood Pressure 127/78 Pulse Oximetry Oxygen Delivery Method Oxygen Flow Rate Oxygen Delivery Method Nasal Cannula Oxygen Flow Rate 2 Objective Labs 04/18/25 13:30 04/18/25 14:10 Labs: Laboratory Results - last 24 hr 04/18/25 04/18/25 04/18/25 13:30 13:30 13:40 WBC 11.4 H RBC 5.71 Hgb 15.5 Hct 48.7 MCV 85.2 MCH 27.2 MCHC 31.9 RDW 13.9 Plt Count 344 Neut % (Auto) 86.1 H Lymph % (Auto) 4.8 L [place] % (Auto) 8.6 Eos % (Auto) 0.0 L Baso % (Auto) 0.5 Neut # (Auto) 9800 H Lymph # (Auto) 500 L [place] # (Auto) 1000 H Eos # (Auto) 0 Baso # (Auto) 100 PT 11.0 INR 1.0 APTT 31 ABG Sample Site ABG pH ABG pCO2 ABG pO2 ABG HCO3 ABG Total CO2 ABG O2 Saturation ABG Base Excess [place] Test VBG pH VBG pCO2 VBG pO2 VBG HCO3 VBG Total CO2 VBG O2 Saturation VBG Base Excess Sodium Potassium Chloride Carbon Dioxide BUN Creatinine Estimated GFR BUN/Creatinine Ratio Glucose Lactate 5.0 H* Calcium Total Bilirubin AST ALT Alkaline Phosphatase Ammonia Total Creatine Kinase 6660 H Cancelled Troponin I 0.086 H Total Protein Albumin Globulin Albumin/Globulin Ratio Lipase Procalcitonin 3.41 H U Opiates 300ng/mL cut Ur Oxycodone Screen Urine Methadone Screen Ur Barbiturates Screen U Tricyclic Antidepress Ur Phencyclidine Scrn Ur Amphetamines Screen U Methamphetamines Scrn Ur MDMA Scrn (Ecstasy) U Benzodiazepines Scrn Urine Cocaine Screen U Marijuana (THC) Screen Urine pH Urine Specific [place] Ethyl Alcohol < 10 Ur Creatinine Blood Type B Positive Antibody Screen Negative 04/18/25 04/18/25 04/18/25 13:53 14:10 14:15 WBC RBC Hgb Hct MCV MCH MCHC RDW Plt Count Neut % (Auto) Lymph % (Auto) [place] % (Auto) Eos % (Auto) Baso % (Auto) Neut # (Auto) Lymph # (Auto) [place] # (Auto) Eos # (Auto) Baso # (Auto) PT INR APTT ABG Sample Site ABG pH ABG pCO2 ABG pO2 ABG HCO3 ABG Total CO2 ABG O2 Saturation ABG Base Excess [place] Test VBG pH VBG pCO2 VBG pO2 VBG HCO3 VBG Total CO2 VBG O2 Saturation VBG Base Excess Sodium 143 Potassium 5.2 H Chloride 105 Carbon Dioxide 16 L BUN 31 H Creatinine 2.10 H Estimated GFR 35 L BUN/Creatinine Ratio 14.8 Glucose 100 H Lactate Calcium 8.6 Total Bilirubin 0.6 AST 128 H ALT 74 H Alkaline Phosphatase 73 Ammonia 86 H Total Creatine Kinase Troponin I Total Protein 8.1 Albumin 4.8 Globulin 3.3 Albumin/Globulin Ratio 1.5 Lipase 103 Procalcitonin U Opiates 300ng/mL cut Positive H Ur Oxycodone Screen Negative Urine Methadone Screen Positive H Ur Barbiturates Screen Negative U Tricyclic Antidepress Negative Ur Phencyclidine Scrn Negative Ur Amphetamines Screen Positive H U Methamphetamines Scrn Positive H Ur MDMA Scrn (Ecstasy) Positive H U Benzodiazepines Scrn Negative Urine Cocaine Screen Negative U Marijuana (THC) Screen Negative Urine pH Normal Urine Specific [place] Normal Ethyl Alcohol Ur Creatinine Normal Blood Type Antibody Screen 04/18/25 04/18/25 04/18/25 14:17 14:39 15:47 WBC RBC Hgb Hct MCV MCH MCHC RDW Plt Count Neut % (Auto) Lymph % (Auto) [place] % (Auto) Eos % (Auto) Baso % (Auto) Neut # (Auto) Lymph # (Auto) [place] # (Auto) Eos # (Auto) Baso # (Auto) PT INR APTT ABG Sample Site Right radial ABG pH 7.21 L* ABG pCO2 46.8 H ABG pO2 55 L ABG HCO3 19 L ABG Total CO2 18 L ABG O2 Saturation 81 L* ABG Base Excess -9.0 L Nakul Test Yes, passed VBG pH 7.14 L* VBG pCO2 57.1 H VBG pO2 39 VBG HCO3 19 L VBG Total CO2 19 L VBG O2 Saturation 56 L VBG Base Excess -10.5 L Sodium Potassium Chloride Carbon Dioxide BUN Creatinine Estimated GFR BUN/Creatinine Ratio Glucose Lactate 2.1 Calcium Total Bilirubin AST ALT Alkaline Phosphatase Ammonia Total Creatine Kinase Troponin I Total Protein Albumin Globulin Albumin/Globulin Ratio Lipase Procalcitonin U Opiates 300ng/mL cut Ur Oxycodone Screen Urine Methadone Screen Ur Barbiturates Screen U Tricyclic Antidepress Ur Phencyclidine Scrn Ur Amphetamines Screen U Methamphetamines Scrn Ur MDMA Scrn (Ecstasy) U Benzodiazepines Scrn Urine Cocaine Screen U Marijuana (THC) Screen Urine pH Urine Specific [place] Ethyl Alcohol Ur Creatinine Blood Type Antibody Screen Assessment & Plan Time-Based Coding :: [TOTAL MINUTES] spent with patient and on the chart (including review of chart, obtaining history, exam, reviewing outside data, placing orders, documenting exam and treatment plan, and counseling patient) on [DATE].
[2025-04-18] MEDS: PIPERACILLIN/TAZO 3.375 GM in SODIUM CHLORIDE 0.9% 100 ML IV (20:43)
[2025-04-18 23:19] LABS: Allen Test for ABG Passed? Positive; Blood Gas Collection Site Right Radial; Delivery System Cannula; HCO3 ABG 21 mmol/L (23-27); Oxygen Saturation ABG 94 % (95-100); PCO2 ABG 49.9 mmHg (35-45); PO2 ABG 83 mmHg (80-100); TCO2 ABG 20 mmol/L (23-27)
--- NOTE | 2025-04-18 23:37 | PM.CN.EICU ---
History of Present Illness Consult details IF CAMERA ACTIVATED, patient seen via real-time interactive audiovisual communication: Camera activated (Pt seen in ER after hospsital Sign-out) Date Patient Seen: 04/19/25 Chief complaint: Encephalopathy agitated delirium NH 3 multidrug us Reason for consult: Drug intoxication vs Overdose Consent obtained for tele-teleservices representative care: Yes Patient Location: ICU Provider location (State): [place] Other participants/roles: Physician Narrative: 64 y/o male with no know pmh presents after being found down for with is suspected to be a drug intoxication/oversdose. Intent is not yet know. Pt remains somnolent but responsive to physical stimuli. He is not communicative after being awakened. Patient returns to sleep soon after removal of stimulation. ROS limited by clinical condition. Current Medications Current Medications Medications: Visit Medications (administered) Generic Name Dose Route Start Last Admin Trade Name Freq PRN Reason Stop Dose Admin Sodium Chloride 1,000 mls @ 100 mls/hr 04/18/25 17:45 04/18/25 18:24 Normal Saline 0.9% IV 100 mls/hr CONT LINDY Administration Lactulose 20 gm 04/18/25 17:45 04/18/25 18:41 Lactulose 20 Gm/30 Ml Solution PO Not Given TID LINDY Phenobarbital 65 mg 04/18/25 17:45 04/18/25 18:24 Phenobarbital 65 Mg/Ml Vial IV 04/21/25 17:44 65 mg Q6H LINDY Administration Review of Systems Review of Systems ROS: Yes unobtainable due to mental condition Exam Vital Signs (past 8 hours): - 04/18/25 15:40 04/18/25 15:45 04/18/25 15:45 Temperature Pulse Rate 101 H 101 H Respiratory Rate 8 L 8 L Blood Pressure 128/70 Pulse Oximetry 95 95 Oxygen Delivery Method Oxygen Flow Rate 04/18/25 15:50 04/18/25 15:55 04/18/25 16:00 Temperature Pulse Rate 101 H 101 H 100 H Respiratory Rate 8 L 8 L 8 L Blood Pressure Pulse Oximetry 96 96 96 Oxygen Delivery Method Nasal Cannula Oxygen Flow Rate 1 04/18/25 16:00 04/18/25 16:15 04/18/25 16:15 Temperature 99.7 F H Pulse Rate 102 H Respiratory Rate 8 L Blood Pressure 137/71 134/73 Pulse Oximetry 94 Oxygen Delivery Method Nasal Cannula Oxygen Flow Rate 1 04/18/25 16:30 04/18/25 16:30 04/18/25 16:45 Temperature Pulse Rate 101 H Respiratory Rate 9 L Blood Pressure 143/78 H 144/78 H Pulse Oximetry 96 Oxygen Delivery Method Oxygen Flow Rate 04/18/25 16:45 04/18/25 17:00 04/18/25 17:00 Temperature Pulse Rate 101 H 104 H Respiratory Rate 8 L 9 L Blood Pressure 104/76 Pulse Oximetry 96 95 Oxygen Delivery Method Oxygen Flow Rate 04/18/25 17:15 04/18/25 17:15 04/18/25 17:30 Temperature 98.5 F Pulse Rate 104 H 105 H Respiratory Rate 10 L 8 L Blood Pressure 114/74 Pulse Oximetry 91 94 Oxygen Delivery Method Nasal Cannula Oxygen Flow Rate 2 04/18/25 17:30 04/18/25 17:45 04/18/25 17:45 Temperature Pulse Rate 106 H Respiratory Rate 9 L Blood Pressure 116/76 127/78 Pulse Oximetry 94 Oxygen Delivery Method Nasal Cannula Oxygen Flow Rate 2 04/18/25 18:00 04/18/25 18:00 04/18/25 18:15 Temperature Pulse Rate 107 H 108 H Respiratory Rate 10 L 13 Blood Pressure 131/76 Pulse Oximetry 96 96 Oxygen Delivery Method Oxygen Flow Rate 04/18/25 18:15 04/18/25 18:30 04/18/25 18:30 Temperature Pulse Rate 108 H Respiratory Rate 13 Blood Pressure 112/78 117/83 Pulse Oximetry 96 Oxygen Delivery Method Oxygen Flow Rate 04/18/25 18:45 04/18/25 18:45 04/18/25 19:00 Temperature Pulse Rate 109 H Respiratory Rate 12 Blood Pressure 118/86 120/78 Pulse Oximetry 95 Oxygen Delivery Method Oxygen Flow Rate 04/18/25 19:00 04/18/25 19:15 04/18/25 19:15 Temperature Pulse Rate 109 H 109 H Respiratory Rate 13 13 Blood Pressure 129/75 Pulse Oximetry 96 96 Oxygen Delivery Method Oxygen Flow Rate 04/18/25 19:30 04/18/25 19:31 04/18/25 19:31 Temperature Pulse Rate 110 H 109 H Respiratory Rate 15 12 Blood Pressure 155/75 H Pulse Oximetry 96 97 Oxygen Delivery Method Oxygen Flow Rate 04/18/25 19:46 04/18/25 19:46 04/18/25 20:00 Temperature Pulse Rate 109 H Respiratory Rate 10 L Blood Pressure 128/76 128/78 Pulse Oximetry 96 Oxygen Delivery Method Oxygen Flow Rate 04/18/25 20:00 04/18/25 20:15 04/18/25 20:15 Temperature Pulse Rate 109 H 109 H Respiratory Rate 12 10 L Blood Pressure 137/74 Pulse Oximetry 97 96 Oxygen Delivery Method Oxygen Flow Rate 04/18/25 20:30 04/18/25 20:30 04/18/25 20:46 Temperature Pulse Rate 111 H 112 H Respiratory Rate 8 L 10 L Blood Pressure 140/71 Pulse Oximetry 95 94 Oxygen Delivery Method Oxygen Flow Rate 04/18/25 20:46 04/18/25 21:00 04/18/25 21:30 Temperature Pulse Rate 112 H 112 H Respiratory Rate 10 L 11 L Blood Pressure 117/82 Pulse Oximetry 94 95 Oxygen Delivery Method Oxygen Flow Rate Oxygen Delivery Method Nasal Cannula Oxygen Flow Rate 2 Narrative Exam Narrative: Well nourished man, very somnolent, but responsive to painful stimuli. able to track, maintain eye contact momentarily. Const General: intoxicated appearing Nutritional Appearance: well nourished Orientation: obtunded Limitations: altered mental status HENIA Head: atraumatic Eyes Periorbital: periorbital findings normal Neck Neck: normal visual inspection and full ROM Chest Chest: normal inspection of the chest Resp Effort & Inspection: normal respiratory effort and uses accessory muscles Cardio Other: Vitals WNL on the monitor Neuro General: patient confused and patient obtunded Objective ECG Impression: Tachycardia, sinus, QTc prolonged, no ST changes Labs 04/18/25 13:30 04/18/25 14:10 Labs: Laboratory Results - last 24 hr 04/18/25 04/18/25 04/18/25 13:30 13:30 13:40 WBC 11.4 H RBC 5.71 Hgb 15.5 Hct 48.7 MCV 85.2 MCH 27.2 MCHC 31.9 RDW 13.9 Plt Count 344 Neut % (Auto) 86.1 H Lymph % (Auto) 4.8 L [place] % (Auto) 8.6 Eos % (Auto) 0.0 L Baso % (Auto) 0.5 Neut # (Auto) 9800 H Lymph # (Auto) 500 L [place] # (Auto) 1000 H Eos # (Auto) 0 Baso # (Auto) 100 PT 11.0 INR 1.0 APTT 31 ABG Sample Site ABG pH ABG pCO2 ABG pO2 ABG HCO3 ABG Total CO2 ABG O2 Saturation ABG Base Excess Nakul Test VBG pH VBG pCO2 VBG pO2 VBG HCO3 VBG Total CO2 VBG O2 Saturation VBG Base Excess O2 Delivery Device FiO2 % Sodium Potassium Chloride Carbon Dioxide BUN Creatinine Estimated GFR BUN/Creatinine Ratio Glucose Lactate 5.0 H* Calcium Total Bilirubin AST ALT Alkaline Phosphatase Ammonia Total Creatine Kinase 6660 H Cancelled Troponin I 0.086 H Total Protein Albumin Globulin Albumin/Globulin Ratio Lipase Procalcitonin 3.41 H U Opiates 300ng/mL cut Ur Oxycodone Screen Urine Methadone Screen Ur Barbiturates Screen U Tricyclic Antidepress Ur Phencyclidine Scrn Ur Amphetamines Screen U Methamphetamines Scrn Ur MDMA Scrn (Ecstasy) U Benzodiazepines Scrn Urine Cocaine Screen U Marijuana (THC) Screen Urine pH Urine Specific Gregory Ethyl Alcohol < 10 Ur Creatinine Blood Type B Positive Antibody Screen Negative 04/18/25 04/18/25 04/18/25 13:53 14:10 14:15 WBC RBC Hgb Hct MCV MCH MCHC RDW Plt Count Neut % (Auto) Lymph % (Auto) [place] % (Auto) Eos % (Auto) Baso % (Auto) Neut # (Auto) Lymph # (Auto) [place] # (Auto) Eos # (Auto) Baso # (Auto) PT INR APTT ABG Sample Site ABG pH ABG pCO2 ABG pO2 ABG HCO3 ABG Total CO2 ABG O2 Saturation ABG Base Excess Nakul Test VBG pH VBG pCO2 VBG pO2 VBG HCO3 VBG Total CO2 VBG O2 Saturation VBG Base Excess O2 Delivery Device FiO2 % Sodium 143 Potassium 5.2 H Chloride 105 Carbon Dioxide 16 L BUN 31 H Creatinine 2.10 H Estimated GFR 35 L BUN/Creatinine Ratio 14.8 Glucose 100 H Lactate Calcium 8.6 Total Bilirubin 0.6 AST 128 H ALT 74 H Alkaline Phosphatase 73 Ammonia 86 H Total Creatine Kinase Troponin I Total Protein 8.1 Albumin 4.8 Globulin 3.3 Albumin/Globulin Ratio 1.5 Lipase 103 Procalcitonin U Opiates 300ng/mL cut Positive H Ur Oxycodone Screen Negative Urine Methadone Screen Positive H Ur Barbiturates Screen Negative U Tricyclic Antidepress Negative Ur Phencyclidine Scrn Negative Ur Amphetamines Screen Positive H U Methamphetamines Scrn Positive H Ur MDMA Scrn (Ecstasy) Positive H U Benzodiazepines Scrn Negative Urine Cocaine Screen Negative U Marijuana (THC) Screen Negative Urine pH Normal Urine Specific Gregory Normal Ethyl Alcohol Ur Creatinine Normal Blood Type Antibody Screen 04/18/25 04/18/25 04/18/25 14:17 14:39 15:47 WBC RBC Hgb Hct MCV MCH MCHC RDW Plt Count Neut % (Auto) Lymph % (Auto) [place] % (Auto) Eos % (Auto) Baso % (Auto) Neut # (Auto) Lymph # (Auto) [place] # (Auto) Eos # (Auto) Baso # (Auto) PT INR APTT ABG Sample Site Right radial ABG pH 7.21 L* ABG pCO2 46.8 H ABG pO2 55 L ABG HCO3 19 L ABG Total CO2 18 L ABG O2 Saturation 81 L* ABG Base Excess -9.0 L Nakul Test Yes, passed VBG pH 7.14 L* VBG pCO2 57.1 H VBG pO2 39 VBG HCO3 19 L VBG Total CO2 19 L VBG O2 Saturation 56 L VBG Base Excess -10.5 L O2 Delivery Device FiO2 % Sodium Potassium Chloride Carbon Dioxide BUN Creatinine Estimated GFR BUN/Creatinine Ratio Glucose Lactate 2.1 Calcium Total Bilirubin AST ALT Alkaline Phosphatase Ammonia Total Creatine Kinase Troponin I Total Protein Albumin Globulin Albumin/Globulin Ratio Lipase Procalcitonin U Opiates 300ng/mL cut Ur Oxycodone Screen Urine Methadone Screen Ur Barbiturates Screen U Tricyclic Antidepress Ur Phencyclidine Scrn Ur Amphetamines Screen U Methamphetamines Scrn Ur MDMA Scrn (Ecstasy) U Benzodiazepines Scrn Urine Cocaine Screen U Marijuana (THC) Screen Urine pH Urine Specific Gregory Ethyl Alcohol Ur Creatinine Blood Type Antibody Screen 04/18/25 23:12 WBC RBC Hgb Hct MCV MCH MCHC RDW Plt Count Neut % (Auto) Lymph % (Auto) [place] % (Auto) Eos % (Auto) Baso % (Auto) Neut # (Auto) Lymph # (Auto) [place] # (Auto) Eos # (Auto) Baso # (Auto) PT INR APTT ABG Sample Site Right radial ABG pH 7.22 L* ABG pCO2 49.9 H ABG pO2 83 ABG HCO3 21 L ABG Total CO2 20 L ABG O2 Saturation 94 L ABG Base Excess -7.4 L Nakul Test Positive VBG pH VBG pCO2 VBG pO2 VBG HCO3 VBG Total CO2 VBG O2 Saturation VBG Base Excess O2 Delivery Device Cannula FiO2 % 45 % Sodium Potassium Chloride Carbon Dioxide BUN Creatinine Estimated GFR BUN/Creatinine Ratio Glucose Lactate Calcium Total Bilirubin AST ALT Alkaline Phosphatase Ammonia Total Creatine Kinase Troponin I Total Protein Albumin Globulin Albumin/Globulin Ratio Lipase Procalcitonin U Opiates 300ng/mL cut Ur Oxycodone Screen Urine Methadone Screen Ur Barbiturates Screen U Tricyclic Antidepress Ur Phencyclidine Scrn Ur Amphetamines Screen U Methamphetamines Scrn Ur MDMA Scrn (Ecstasy) U Benzodiazepines Scrn Urine Cocaine Screen U Marijuana (THC) Screen Urine pH Urine Specific Gregory Ethyl Alcohol Ur Creatinine Blood Type Antibody Screen Assessment & Plan Assessment and plan (1) Prolonged Q-T interval on ECG: Status: Acute (2) Rhabdomyolysis: Qualifiers: Rhabdomyolysis type: non-traumatic Qualified Code(s): M62.82 - Rhabdomyolysis Status: Acute (3) Acute kidney injury: Status: Acute (4) Acute hepatic encephalopathy: Status: Acute (5) GI bleed: Qualifiers: GI bleed type/associated pathology: unspecified gastrointestinal hemorrhage type Qualified Code(s): K92.2 - Gastrointestinal hemorrhage, unspecified Status: Acute Plan 64 y/o male with no know pmh presents after being found down for with is suspected to be a drug intoxication/oversdose. Assessment & Plan narrative: Drug intoxication/Overdose Metabolic encephalopathy - Serum tox positive for multiple sedating drugs - quantity of drugs consumed remains unknown (no witness or paraphernalia reported) - Respiratory acidosis noted on abg but improving - Q2H neurochecks for 12 hours - Ciwa protocol, w/ vitamines - PRN Versed for seizure and agitation - Order TSH, free T3, and ammonia GI Bleed- suspected - PPI q12 - NPO - rec routine GI consultation - trend H/H SHIRIN Rhabdomyolysis - Continue IV hydration - Trend CPK PNA - trend blood culture - Order Patricia Cunningham - Respiratory culture - Urine step, urine legionella - low threshold for intubation EKG Prolong QTc - repeat EKG in the am Time-Based Coding :: TELEMEDICINE ATTESTATION: I spent a total of 60 minutes of aggregate critical care time on this patient's care today exclusive of procedural time. There is a high probability of sudden clinical deterioration due to acute impairment of vital organ systems?that require complex and urgent medical decision making to frequently assess, manipulate, and support vital life-sustaining functions. Lack of these complex and urgent medical care would probably cause rapid clinical deterioration and possible . Telemedicine consent: in chart Yes Provider distant site (state abbreviation): [place] Persons involved: Patient, Telehospitalist, ER nurse Patient seen via two-way interactive audiovisual telecommunication.
[2025-04-19] VITALS (134 sets, daily range): BP systolic 101–166; BP diastolic 59–87; PULSE 80–120; RESP 5–18; TEMP 36.9–37.6; O2SAT 90–98; BMI 26.6
[2025-04-19] MEDS: PANTOPRAZOLE 40 MG VIAL IV ×2 (00:05→12:10)
[2025-04-19] MEDS: PIPERACILLIN/TAZO 3.375 GM in SODIUM CHLORIDE 0.9% 100 ML IV (02:37)
[2025-04-19 03:56] LABS: MRSA (Nasal) PCR NOT DETECTED (Not Detect)
[2025-04-19 05:02] LABS: INR 1.1 (0.9-1.3); Prothrombin Time 12.3 SECONDS (9.4-12.5)
[2025-04-19 05:06] LABS: Hematocrit 42.0 % (41-53); Hemoglobin 13.8 g/dL (13.5-17.5); Mean Corpuscular HGB Conc 32.8 % (30-36); Mean Corpuscular Hemoglobin 27.8 PG (26-34); Mean Corpuscular Volume 84.9 fL (80-100); Platelet Count 254 X10^3/uL (150-400)
[2025-04-19 05:09] LABS: Alanine Aminotransferase 158 IU/L (<50); Albumin 4.4 g/dL (3.5-5.0); Albumin Globulin Ratio 1.4 (1.0-2.8); Alkaline Phosphatase 64 U/L (38-126); Blood Urea Nitrogen 41 mg/dL (9-20); Calcium 7.8 mg/dL (8.4-10.2); Carbon Dioxide 19 mmol/L (22-32); Chloride 108 mmol/L (98-107); Estimated Glomerular Filt Rate 20 mL/min (>60); Globulin 3.2 g/dL (1.7-4.1); Glucose 78 mg/dL (70-99); HEMOLYSIS 15 (0-50); Potassium 5.1 mmol/L (3.4-5.1); Sodium 144 mmol/L (137-145); Total Protein 7.6 g/dL (6.3-8.2)
[2025-04-19 05:15] LABS: Add Manual Diff / Slide Review YES
[2025-04-19 05:58] LABS: Band Neutrophils Percent 26.0 % (3-7); Lymphocytes Percent Manual 7.0 % (25-45); Metamyelocytes Percent 2.0 % (-0); Monocytes Percent Manual 15.0 % (2-11); Neutrophils Absolute Manual 7068 /uL (3000-5900); RBC Morphology Normal Morphology; Segmented Neutrophils Percent 50.0 % (38-70); Total Cells Counted 100
--- NOTE | 2025-04-19 07:30 | PC.NURSE ---
Patient arrived from ED by stretcher on 2L/minute O2 per NC. During report ER nurse mentioned that patient is obtunded, per ER nurse patient was not intubated per recommendation of tele-dietitian therapeutic. After patient was settled in ICU Rm 229, vital signs HR 114, BP 134/69, Resp 22, SpO2 96% on 2L/min per NC. Pt was obtunded, moans and groans, does not respond to verbal stimulus, unpurposeful physical response to pain and pressure, open eyes but dose off right away, PERRLA, sluggish reaction to light, tachycardic, coarse lung sounds with rattling weak cough, during oral suctioning noted that patient has no gag reflex, able to do oropharyngeal suctioning with small amounts of brown, thick sputum. Urine output from 0135 to 0700 was 250 ml of dark, tea colored urine, abdomen is distended, hard to touch, non tender with hypoactive bowel sound in all quadrants. At 0645 patient was prep for intubation to protect the airway with incomimg CANE STRIPPER and incoming hospitalist at bedside to assume care of patient.
[2025-04-19 07:59] LABS: TSH w/ Reflex to FT4 0.90 uIU/mL (0.47-4.68)
[2025-04-19 08:00] LABS: Hepatitis B Surface Antigen NEGATIVE s/c (NEGATIVE)
[2025-04-19] MEDS: MIDAZOLAM 50 MG in DEXTROSE 5 % IN WATER 40 ML IV (08:11)
[2025-04-19 08:19] LABS: Hep C Virus Ab w/Reflex Quant NEGATIVE s/c (NEGATIVE)
--- NOTE | 2025-04-19 08:19 | DI.RAD.S_ITS ---
PROCEDURE: XR CHEST 1V INDICATIONS: POST INTUBATION TECHNIQUE: One view of the chest was acquired. COMPARISON: None. FINDINGS: Surgical changes and devices: Endotracheal tube terminates 2.6 cm above the indira. Enteric tube is coiled in the stomach. Right IJ catheter terminates in the lower SVC. Lungs and pleura: Diffuse interstitial prominence. Bronchial wall thickening is noted. JESSIKA retrocardiac opacities noted. Mediastinum: Mediastinal contours appear normal. Heart size is normal. Atheromatous plaques are noted thoracic aorta. Bones and chest wall: No suspicious bony abnormalities. Soft tissues appear unremarkable. Multilevel degenerative disc disease noted. IMPRESSION: Tubes and lines in expected position. Possible pulmonary edema with left lower lobe opacities concerning for atelectasis, aspiration or infiltrates. Dictated by: Sirisha Donohue M.D. on 04/19/2025 at 8:53 Approved by: Sirisha Donohue M.D. on 04/19/2025 at 8:55
[2025-04-19] MEDS: NOREPINEPHRINE BIT/0.9 % NACL 4 MG/250 ML PLAST..BAG 31.538 MG IV (08:22)
--- NOTE | 2025-04-19 09:06 | PM.PN.EICU ---
Subjective Subjective IF CAMERA ACTIVATED, patient seen via real-time interactive audiovisual communication: Camera activated Date Patient Seen: 04/19/25 Consent obtained for tele-bariatric nurse care: Yes Patient Location: ICU Provider location (State): [place] Other participants/roles: RN Cristine, RT- Dr. Morrison Interval history: Patients mental status continued to worsen not protecting airway was intubated this am around 7:45 am now on prop/versed gtt requiring levo to maintain BP Renal function worsening- Cr 3.3, GFR 20- uop marginal LFT rising CK pending Current Medications Current Medications Medications: Visit Medications (administered) Generic Name Dose Route Start Last Admin Trade Name Freq PRN Reason Stop Dose Admin Sodium Chloride 1,000 mls @ 100 mls/hr 04/18/25 17:45 04/18/25 18:24 Normal Saline 0.9% IV 100 mls/hr CONT LINDY Administration Piperacillin Sod/Tazobactam 100 mls @ 25 mls/hr 04/19/25 01:30 04/19/25 06:40 Sod 3.375 gm/ Sodium Chloride IV Infused Q8H LINDY Infusion Midazolam HCl 50 mg/ Dextrose 50 mls @ 5 mls/hr 04/19/25 07:32 04/19/25 08:11 IV 1 mg/hr TITRATE PRN 1 mls/hr Sedation Administration Protocol 5 MG/HR Propofol 1,000 mg in 100 mls @ 2.523 mls/hr 04/19/25 08:08 04/19/25 08:18 Diprivan IV 04/20/25 23:46 25 mcg/kg/min NOW ONE 12.615 mls/hr Protocol Titration 5 MCG/KG/MIN NOREPINEPHRINE BIT/0.9 % NACL 4 mg in 250 mls @ 31.538 mls/hr 04/19/25 08:15 04/19/25 08:22 Norepinephr 4 Mg/250-0.9% Nacl IV 0.1 mcg/kg/min TITRATE LINDY 31.538 mls/hr Protocol Administration 0.1 MCG/KG/MIN Lactulose 20 gm 04/18/25 17:45 04/19/25 02:27 Lactulose 20 Gm/30 Ml Solution PO Not Given TID LINDY Pantoprazole Sodium 40 mg 04/18/25 21:00 04/19/25 00:05 Pantoprazole 40 Mg Vial IV 40 mg BID LINDY Administration Objective Ventilator Parameters: Ventilator Settings FiO2 50 RT Vent Frequency 15 Ventilator Tidal Volume 530 Exhaled Vt/kg IBW 6 Positive End Expiratory 5 Pressure Inspiratory Phase Time 1.0 Patient Position HOB >= 30 degrees Imaging Chest x-ray: My impression: ETT in good position- c/f left sided pna Radiologist's impression: ETT 2.6 cm above indira LLL opacity Labs 04/19/25 04:23 04/19/25 04:23 Labs: Laboratory Results - last 24 hr 04/18/25 04/18/25 04/18/25 13:30 13:30 13:40 WBC 11.4 H RBC 5.71 Hgb 15.5 Hct 48.7 MCV 85.2 MCH 27.2 MCHC 31.9 RDW 13.9 Plt Count 344 Neut % (Auto) 86.1 H Lymph % (Auto) 4.8 L [place] % (Auto) 8.6 Eos % (Auto) 0.0 L Baso % (Auto) 0.5 Neut # (Auto) 9800 H Lymph # (Auto) 500 L [place] # (Auto) 1000 H Eos # (Auto) 0 Baso # (Auto) 100 Total Counted Seg Neutrophils % Band Neutrophils % Lymphocytes % (Manual) Monocytes % (Manual) Metamyelocytes % Neutrophils # (Manual) RBC Morphology PT 11.0 INR 1.0 APTT 31 ABG Sample Site ABG pH ABG pCO2 ABG pO2 ABG HCO3 ABG Total CO2 ABG O2 Saturation ABG Base Excess Nakul Test VBG pH VBG pCO2 VBG pO2 VBG HCO3 VBG Total CO2 VBG O2 Saturation VBG Base Excess O2 Delivery Device FiO2 % Sodium Potassium Chloride Carbon Dioxide BUN Creatinine Estimated GFR BUN/Creatinine Ratio Glucose Lactate 5.0 H* Calcium Total Bilirubin Conjugated Bilirubin Unconjugated Bilirubin AST ALT Alkaline Phosphatase Ammonia Total Creatine Kinase 6660 H Cancelled Troponin I 0.086 H Total Protein Albumin Globulin Albumin/Globulin Ratio Lipase Procalcitonin 3.41 H TSH Nasal Screen MRSA (PCR) U Opiates 300ng/mL cut Ur Oxycodone Screen Urine Methadone Screen Ur Barbiturates Screen U Tricyclic Antidepress Ur Phencyclidine Scrn Ur Amphetamines Screen U Methamphetamines Scrn Ur MDMA Scrn (Ecstasy) U Benzodiazepines Scrn Urine Cocaine Screen U Marijuana (THC) Screen Urine pH Urine Specific [place] Ethyl Alcohol < 10 Ur Creatinine Hep Bs Antigen Hepatitis C Antibody Blood Type B Positive Antibody Screen Negative 04/18/25 04/18/25 04/18/25 13:53 14:10 14:15 WBC RBC Hgb Hct MCV MCH MCHC RDW Plt Count Neut % (Auto) Lymph % (Auto) [place] % (Auto) Eos % (Auto) Baso % (Auto) Neut # (Auto) Lymph # (Auto) [place] # (Auto) Eos # (Auto) Baso # (Auto) Total Counted Seg Neutrophils % Band Neutrophils % Lymphocytes % (Manual) Monocytes % (Manual) Metamyelocytes % Neutrophils # (Manual) RBC Morphology PT INR APTT ABG Sample Site ABG pH ABG pCO2 ABG pO2 ABG HCO3 ABG Total CO2 ABG O2 Saturation ABG Base Excess Nakul Test VBG pH VBG pCO2 VBG pO2 VBG HCO3 VBG Total CO2 VBG O2 Saturation VBG Base Excess O2 Delivery Device FiO2 % Sodium 143 Potassium 5.2 H Chloride 105 Carbon Dioxide 16 L BUN 31 H Creatinine 2.10 H Estimated GFR 35 L BUN/Creatinine Ratio 14.8 Glucose 100 H Lactate Calcium 8.6 Total Bilirubin 0.6 Conjugated Bilirubin Unconjugated Bilirubin AST 128 H ALT 74 H Alkaline Phosphatase 73 Ammonia 86 H Total Creatine Kinase Troponin I Total Protein 8.1 Albumin 4.8 Globulin 3.3 Albumin/Globulin Ratio 1.5 Lipase 103 Procalcitonin TSH Nasal Screen MRSA (PCR) U Opiates 300ng/mL cut Positive H Ur Oxycodone Screen Negative Urine Methadone Screen Positive H Ur Barbiturates Screen Negative U Tricyclic Antidepress Negative Ur Phencyclidine Scrn Negative Ur Amphetamines Screen Positive H U Methamphetamines Scrn Positive H Ur MDMA Scrn (Ecstasy) Positive H U Benzodiazepines Scrn Negative Urine Cocaine Screen Negative U Marijuana (THC) Screen Negative Urine pH Normal Urine Specific [place] Normal Ethyl Alcohol Ur Creatinine Normal Hep Bs Antigen Hepatitis C Antibody Blood Type Antibody Screen 04/18/25 04/18/25 04/18/25 14:17 14:39 15:47 WBC RBC Hgb Hct MCV MCH MCHC RDW Plt Count Neut % (Auto) Lymph % (Auto) [place] % (Auto) Eos % (Auto) Baso % (Auto) Neut # (Auto) Lymph # (Auto) [place] # (Auto) Eos # (Auto) Baso # (Auto) Total Counted Seg Neutrophils % Band Neutrophils % Lymphocytes % (Manual) Monocytes % (Manual) Metamyelocytes % Neutrophils # (Manual) RBC Morphology PT INR APTT ABG Sample Site Right radial ABG pH 7.21 L* ABG pCO2 46.8 H ABG pO2 55 L ABG HCO3 19 L ABG Total CO2 18 L ABG O2 Saturation 81 L* ABG Base Excess -9.0 L Nakul Test Yes, passed VBG pH 7.14 L* VBG pCO2 57.1 H VBG pO2 39 VBG HCO3 19 L VBG Total CO2 19 L VBG O2 Saturation 56 L VBG Base Excess -10.5 L O2 Delivery Device FiO2 % Sodium Potassium Chloride Carbon Dioxide BUN Creatinine Estimated GFR BUN/Creatinine Ratio Glucose Lactate 2.1 Calcium Total Bilirubin Conjugated Bilirubin Unconjugated Bilirubin AST ALT Alkaline Phosphatase Ammonia Total Creatine Kinase Troponin I Total Protein Albumin Globulin Albumin/Globulin Ratio Lipase Procalcitonin TSH Nasal Screen MRSA (PCR) U Opiates 300ng/mL cut Ur Oxycodone Screen Urine Methadone Screen Ur Barbiturates Screen U Tricyclic Antidepress Ur Phencyclidine Scrn Ur Amphetamines Screen U Methamphetamines Scrn Ur MDMA Scrn (Ecstasy) U Benzodiazepines Scrn Urine Cocaine Screen U Marijuana (THC) Screen Urine pH Urine Specific [place] Ethyl Alcohol Ur Creatinine Hep Bs Antigen Hepatitis C Antibody Blood Type Antibody Screen 04/18/25 04/19/25 04/19/25 23:12 02:12 04:23 WBC 9.3 RBC 4.95 Hgb 13.8 Hct 42.0 MCV 84.9 MCH 27.8 MCHC 32.8 RDW 14.0 Plt Count 254 Neut % (Auto) Not Reportable Lymph % (Auto) Not Reportable [place] % (Auto) Not Reportable Eos % (Auto) Not Reportable Baso % (Auto) Not Reportable Neut # (Auto) Lymph # (Auto) Not Reportable [place] # (Auto) Not Reportable Eos # (Auto) Baso # (Auto) Not Reportable Total Counted 100 Seg Neutrophils % 50.0 Band Neutrophils % 26.0 H Lymphocytes % (Manual) 7.0 L Monocytes % (Manual) 15.0 H Metamyelocytes % 2.0 H Neutrophils # (Manual) 7068 H RBC Morphology Normal morphology PT 12.3 INR 1.1 APTT ABG Sample Site Right radial ABG pH 7.22 L* ABG pCO2 49.9 H ABG pO2 83 ABG HCO3 21 L ABG Total CO2 20 L ABG O2 Saturation 94 L ABG Base Excess -7.4 L Ankul Test Positive VBG pH VBG pCO2 VBG pO2 VBG HCO3 VBG Total CO2 VBG O2 Saturation VBG Base Excess O2 Delivery Device Cannula FiO2 % 45 % Sodium 144 Potassium 5.1 Chloride 108 H Carbon Dioxide 19 L BUN 41 H Creatinine 3.31 H Estimated GFR 20 L BUN/Creatinine Ratio 12.4 Glucose 78 Lactate Calcium 7.8 L Total Bilirubin 0.7 Conjugated Bilirubin Unconjugated Bilirubin AST 544 H ALT 158 H Alkaline Phosphatase 64 Ammonia Total Creatine Kinase Troponin I Total Protein 7.6 Albumin 4.4 Globulin 3.2 Albumin/Globulin Ratio 1.4 Lipase Procalcitonin TSH Nasal Screen MRSA (PCR) Not detected U Opiates 300ng/mL cut Ur Oxycodone Screen Urine Methadone Screen Ur Barbiturates Screen U Tricyclic Antidepress Ur Phencyclidine Scrn Ur Amphetamines Screen U Methamphetamines Scrn Ur MDMA Scrn (Ecstasy) U Benzodiazepines Scrn Urine Cocaine Screen U Marijuana (THC) Screen Urine pH Urine Specific [place] Ethyl Alcohol Ur Creatinine Hep Bs Antigen Hepatitis C Antibody Blood Type Antibody Screen 04/19/25 06:45 WBC RBC Hgb Hct MCV MCH MCHC RDW Plt Count Neut % (Auto) Lymph % (Auto) [place] % (Auto) Eos % (Auto) Baso % (Auto) Neut # (Auto) Lymph # (Auto) [place] # (Auto) Eos # (Auto) Baso # (Auto) Total Counted Seg Neutrophils % Band Neutrophils % Lymphocytes % (Manual) Monocytes % (Manual) Metamyelocytes % Neutrophils # (Manual) RBC Morphology PT INR APTT ABG Sample Site ABG pH ABG pCO2 ABG pO2 ABG HCO3 ABG Total CO2 ABG O2 Saturation ABG Base Excess Nakul Test VBG pH VBG pCO2 VBG pO2 VBG HCO3 VBG Total CO2 VBG O2 Saturation VBG Base Excess O2 Delivery Device FiO2 % Sodium Potassium Chloride Carbon Dioxide BUN Creatinine Estimated GFR BUN/Creatinine Ratio Glucose Lactate Calcium Total Bilirubin Cancelled Conjugated Bilirubin Cancelled Unconjugated Bilirubin Cancelled AST Cancelled ALT Cancelled Alkaline Phosphatase Cancelled Ammonia Total Creatine Kinase Troponin I Total Protein Cancelled Albumin Cancelled Globulin Cancelled Albumin/Globulin Ratio Cancelled Lipase Procalcitonin TSH 0.90 Nasal Screen MRSA (PCR) U Opiates 300ng/mL cut Ur Oxycodone Screen Urine Methadone Screen Ur Barbiturates Screen U Tricyclic Antidepress Ur Phencyclidine Scrn Ur Amphetamines Screen U Methamphetamines Scrn Ur MDMA Scrn (Ecstasy) U Benzodiazepines Scrn Urine Cocaine Screen U Marijuana (THC) Screen Urine pH Urine Specific [place] Ethyl Alcohol Ur Creatinine Hep Bs Antigen Negative Hepatitis C Antibody Negative Blood Type Antibody Screen Exam Vital Signs (past 8 hours): - 04/19/25 01:25 04/19/25 01:25 04/19/25 01:30 Temperature Pulse Rate 118 H 118 H Respiratory Rate 7 L 8 L Blood Pressure 121/70 Pulse Oximetry 96 96 Oxygen Delivery Method Oxygen Flow Rate 04/19/25 02:00 04/19/25 04:15 04/19/25 05:47 Temperature 98.5 F Pulse Rate 117 H 114 H Respiratory Rate 15 16 16 Blood Pressure 129/65 Pulse Oximetry 97 96 95 Oxygen Delivery Method Nasal Cannula Nasal Cannula Oxygen Flow Rate 4 4 4 04/19/25 06:13 04/19/25 06:30 04/19/25 06:30 Temperature Pulse Rate 118 H 117 H Respiratory Rate 11 L 12 Blood Pressure 136/84 Pulse Oximetry 93 95 Oxygen Delivery Method Oxygen Flow Rate 04/19/25 07:00 04/19/25 07:00 04/19/25 07:01 Temperature Pulse Rate 116 H 117 H 117 H Respiratory Rate 12 8 L 11 L Blood Pressure Pulse Oximetry 90 L Oxygen Delivery Method Nasal Cannula Oxygen Flow Rate 4 04/19/25 08:50 04/19/25 09:04 Temperature Pulse Rate 96 H Respiratory Rate 15 Blood Pressure 162/78 H Pulse Oximetry 96 Oxygen Delivery Method Oxygen Flow Rate Oxygen Delivery Method Nasal Cannula Oxygen Flow Rate 4 Narrative Exam Narrative: intubated, sedated NAD syncrhonous with vent Assessment & Plan Assessment and plan (1) Prolonged Q-T interval on ECG: Status: Acute (2) Rhabdomyolysis: Qualifiers: Rhabdomyolysis type: non-traumatic Qualified Code(s): M62.82 - Rhabdomyolysis Status: Acute (3) Acute kidney injury: Status: Acute (4) Acute hepatic encephalopathy: Status: Acute (5) GI bleed: Qualifiers: GI bleed type/associated pathology: unspecified gastrointestinal hemorrhage type Qualified Code(s): K92.2 - Gastrointestinal hemorrhage, unspecified Status: Acute Plan 64 y/o male with no know pmh presents after being found down for with is suspected to be a drug intoxication/oversdose. Assessment & Plan narrative: Drug intoxication/Overdose Metabolic encephalopathy - Serum tox positive for multiple sedating drugs - quantity of drugs consumed remains unknown (no witness or paraphernalia reported) - Now intubated for airway protection given worsening mental status, likely toxic metabolic. cannot r/o seziure/NCSE - sedated now with prop and versed -recommend transfer for neuro consult, may need EEG - Ciwa protocol- - PRN Versed for seizure and agitation - thiamine/mvi/folate recommended - trend NH3, continue lactulose GI Bleed- suspected - PPI q12 - NPO - rec GI consultation - trend H/H - uptrending LFT ? shock liver -trend NH3, - lactulose -check acetaminophen level SHIRIN Rhabdomyolysis - Continue IV hydration- -monitor UOP -will consider bicarb gtt- pending ck and abg result - Trend CPK -check salicylate level -trend K, --Cr worsening 3.3, gfr 20 will need transfer for nephro consult -possible HD - PNA - follow up blood culture- mrsa screen - continue Vanco, Zosyn - Respiratory culture - Urine step, urine legionella pending - ventilated- continue mV trend abg, goal TV 6-7ml/kg IDBW EKG Prolong QTc - d/c haldol., avoid qt prolonging meds -will repeat ekg ppx: scd- high risk bleed GI ppx- PPI goal BG <180- in goal Time-Based Coding :: [52 min] spent with patient and on the chart (including review of chart, obtaining history, exam, reviewing outside data, placing orders, documenting exam and treatment plan, and counseling patient) on [04/19/25].
[2025-04-19 09:25] LABS: Blood Gas Mode Assist Cont Ventilat; Delivery System Adult Ventilator; HCO3 ABG 18 mmol/L (23-27); Oxygen Saturation ABG 98 % (95-100); PCO2 ABG 36.2 mmHg (35-45); PEEP 5; PO2 ABG 105 mmHg (80-100); TCO2 ABG 18 mmol/L (23-27)
[2025-04-19 09:39] LABS: Acetaminophen < 10 ug/mL (10-30); Salicylate < 1.0 mg/dL (<20)
[2025-04-19 10:18] LABS: Creatine Kinase 38133 U/L (55-170)
--- NOTE | 2025-04-19 11:25 | PM.PROC.1 ---
Procedures Date/Time Date of procedure: 04/19/25 Time of procedure: 07:24 Intubation Time out performed: Yes Sedative: other (propofol) Mg given: 100 Paralytic: succinylcholine Mg given: 100 Laryngoscope: other (Fitzgerald #4) Assist device used: other (stylet) ET tube size: 7.5 Tube secured depth (cm): 23 Tube secured location: teeth Tube placement confirmation: visualized tube passing through cords Patient tolerated procedure: no complications Additional comments: No emesis
--- NOTE | 2025-04-19 11:29 | PM.PROC.1 ---
Procedures Date/Time Date of procedure: 04/19/25 Time of procedure: 07:45 Arterial Line Time out performed: Yes Size (Gauge): 20 Technique used: direct puncture technique Post-Procedure: dry sterile dressing placed Patient tolerated procedure: No complications Site: right and radial
--- NOTE | 2025-04-19 11:30 | PM.PROC.1 ---
Procedures Date/Time Date of procedure: 04/19/25 Time of procedure: 08:12 Central Line Placement Time out performed: Yes Patient placed on monitor/pulse ox: Yes MD prep: mask, gown, gloves and other (hat) Central line prep: Chlorhexidine scrub Ultrasound used for placement: Yes Central line lumen inserted: triple Post procedure: sutured in place, good blood return, all ports aspirated, flushed, capped and sterile dressing applied Patient tolerated procedure: no complications Additional comments: CXR ordered
--- NOTE | 2025-04-19 11:34 | PM.PROC.1 ---
Procedures Date/Time Date of procedure: 04/19/25 Time of procedure: 07:24
[2025-04-19] MEDS: THIAMINE 100 MG in SODIUM CHLORIDE 0.9% 100 ML 404 MG IV (12:10)
[2025-04-19] MEDS: SODIUM CHLORIDE 0.9% 1,000 ML 1000 ML IV (12:30)
[2025-04-19 12:43] LABS: HEMOLYSIS 32 (0-50); Potassium 4.8 mmol/L (3.4-5.1)
--- NOTE | 2025-04-19 14:00 | CM.DANOTE ---
Patient is a 64 yo male who was admitted INPT Status on 04/18/25 for Hepatic Encephalopathy. Pt currently Self Pay as unable to confirm if he has medical insurance and no known PCP. EMR was reviewed. Per MD, pt found down in his hotel room by EMS and admitted for hepatic encephalopathy, likely PNA, and UDS+ for methamphetamines, amphetamines, opiates, MDMA, and ETOH. Uncertain if this was intentional or accidental overdose as pt was intubated to protect his airways. Pt with rhabdo and getting IV Abx and now with renal failure and stripper color attempting hospital transfer for higher level of care needs. Per RN and overnight staff, pt had Dtr and son and ex- bedside last night. They confirm that pt resides in [place] and just arrived recently to visit family and see his sister who is currently on Hospice services. Family had stated that pt does not have hx of admission for overdose before. Pt's Karen [phone] had called RN station requesting info but staff unable to confirm from pt he was agreeable with sharing information and no other family bedside at that time to confirm pt is . Per AD Counselors, pt intubated and unable to confirm if he has medical insurance and no family currently bedside for AD Counselors to discuss pt's information at this time. Pt currently remains Self Pay. Plan: SW to follow closely for plan of hospital transfer when accepted and bed available. LEEROY Olsen Discharge Planning/Care Management CM Discharge Assessment Start: 04/19/25 00:12 Freq: Status: Active Protocol: Document 04/19/25 13:56 BF (Rec: 04/19/25 14:00 BF [id number]) Discharge Planning Assessment Assigned Discharge LEEROY Yates Bus Mechanic Provider none Insurance Comment unknown DPOA/Assigned unknown Designee Name Advance Directives? No History Provided By Family Member,Medical Record Has Patient been No admitted in last 30 days? Prior Living House Arrangements Comment Has been living in [place], here to visit family Household Members spouse Comment spouse Karen (not local) [phone] Independent with ADL Yes 's Is patient alert and Yes oriented? Barriers to Yes Discharge Comment intubated, does not live locally, uncertain if he has medical insurance Discharge Plan Transfer to Higher Level of Care Transportation attempting hospital transfer Arrangement Whiteboard Updated Yes in Patient Room with name and ext. # of [facility] Prototype Review Status In Process Please Provide Date 04/19/25 Initial DC Assessment Was Performed Next Review Type Continued Stay Review
--- NOTE | 2025-04-19 14:13 | P.DS_ITS ---
History of Present Illness History of Present Illness Date Patient Seen: 04/19/25 Chief complaint: Encephalopathy agitated delirium NH 3 multidrug us Narrative: Chief complaint: Agitated delirium alcohol and drug use hepatic encephalopathy History of present illness: 04/18: EMS state they arrived to find him in pronate position on the floor with feces and urine on him. There was a bottle of vodka next to him. Patient is only able to answer his name. He screams out very loudly and uncontrollably. Patient is striking out with his fist towards staff. At times he has escalated with agitation. There is black likely coffee-ground emesis covering his face and mouth hand inside his mouth. No gross deformities of the extremities although he points towards his pelvis as source of pain. Patient arrives by EMS naked. Daughter is at bedside. Daughter states patient just arrived from [place] last . He is here because his sister, is in hospice. Daughter states patient has no history of heart attack strokes diabetes seizures alcohol abuse liver disease drug abuse or alcohol abuse. This is never happened to him before. She dropped him off at 7:00 p.m. last night at the hotel. The time of my evaluation patient arouse to pain but then became somnolent again Findings in the emergency room significant for: White blood cell count 11.4 86% neutrophils platelets 344 Arterial blood gas 7 point 2 1 pCO2 47 PO2 55 81% saturated Sodium 143 potassium 5.2 chloride 105 CO2 16 BUN 31 creatinine 2.1 Total bili 0.6 AST 128 ALT 74 Ammonia 86 CK 6700 Troponin 0.086 Procalcitonin 3.41 Urine toxicology positive for opiates, methadone, amphetamines, methamphetamines, MDMA CT abdomen is out pelvis chest IMPRESSION: 1. No evidence of traumatic injury to the chest, abdomen or pelvis. 2. Opacities within the left upper lobe and right lung base concerning for infection, recommend follow-up imaging. 3. Left lower lobe lobe subpleural nodule measuring 6 mm. Recommend follow-up CT chest in 6-12 months. 4. Indeterminate left adrenal nodule measuring 1.7 cm, recommend nonurgent adrenal protocol MRI or CT. 5. The right testicle appears to be within the inguinal canal, recommend correlation with physical exam for undescended testicle. CTA head and neck: Motion limited study, yet without acute intracranial hemorrhage or other significant acute abnormality. No significant abnormality is seen within the arteries of the neck. Patchy opacities of the left lung apex with more peripheral tree-in-bud opacities likely representing infectious or inflammatory process. Recommend short interval follow-up imaging after resolution of acute findings.. Multilevel cervical spondylosis. Atherosclerosis. If there is persistent or high clinical suspicion for acute cerebrovascular ischemia/stroke, more sensitive evaluation with brain MRI can be considered. Hospital course: 04/19: Overnight patient had further hypopnea with inability to protect airway and hypoxia patient was intubated. Chest x-ray shows bilateral pulmonary infiltrates was placed on assist control of 15 with 50% FiO2 with correction of metabolic acidosis to 7.31 correction of pCO2 236 unfortunately patient's CK escalated to 38,000 and BUN creatinine also escalated to 41 and 3.3 patient also became oliguric. Referral was made to [facility] case was discussed with project engineering manager who agreed to take the patient in transfer Physical exam: Patient obtunded responds HEENT black emesis in his mouth Heart rate and rhythm regular no murmurs Lungs coarse rhonchi throughout Ativan nondistended scant 2-0 bowel sounds Extremities 2+ lower extremity edema Assessment and plan: Multifactorial toxic and metabolic encephalopathy with laboratory findings of: * Ammonia 86 suggesting hepatic encephalopathy * Amphetamine methamphetamine MDMA opiates and methadone * Vodka bottle found next patient * Probable sepsis from aspiration pneumonia * Culture blood * Zosyn vancomycin empirically * Lactulose enema administered * Supplemental oxygen * Serial chest x-ray * Aspiration precaution * ICU admission * Neuro checks and vigilance for withdrawal and seizures * Serum prolactin on admission and in 24 hours for possible seizure * IV PPI * ABG q.8 hours x3 DVT prophylaxis: * Contraindicated Code status: * Full code blue Disposition: * Transferred to [facility] for higher level of care management of acute rhabdomyolysis acute kidney injury dialysis and further direct project engineering manager supervision Time based billing: * 75 minutes were involved in the evaluation of this patient including extensive testing and evaluation [id number] evaluation examination review of chart objective laboratory and imaging findings Discharge Providers Provider Date of admission: 04/18/25 16:34 Discharge Date: 04/19/25 Consults: 04/18/25 23:10 Consult to Tele-project engineering manager Routine Comment: evaluate for intubation Consulting Provider: [facility] [employer] Reason for consultation: [employer] Has provider been notified: No 04/19/25 09:26 Consult to Pharmacy Routine Comment: [facility]GESTION 04/19/25 11:12 Consult to Pharmacy Routine Comment: intubated Discharge provider: Mo Morrison MD Exam Vital Signs (past 8 hours): - 04/19/25 06:15 04/19/25 06:20 04/19/25 06:25 Pulse Rate 117 H 117 H 117 H Respiratory Rate 9 L 10 L 9 L Blood Pressure Pulse Oximetry 93 93 93 Oxygen Delivery Method Oxygen Flow Rate 04/19/25 06:30 04/19/25 06:30 04/19/25 06:35 Pulse Rate 117 H 118 H Respiratory Rate 12 9 L Blood Pressure 136/84 Pulse Oximetry 95 96 Oxygen Delivery Method Oxygen Flow Rate 04/19/25 06:40 04/19/25 06:45 04/19/25 06:50 Pulse Rate 117 H 117 H 117 H Respiratory Rate 10 L 15 14 Blood Pressure Pulse Oximetry 95 93 96 Oxygen Delivery Method Oxygen Flow Rate 04/19/25 06:55 04/19/25 07:00 04/19/25 07:00 Pulse Rate 117 H 116 H Respiratory Rate 12 12 Blood Pressure Pulse Oximetry 95 90 L Oxygen Delivery Method Nasal Cannula Mechanical Ventilation Oxygen Flow Rate 4 04/19/25 07:00 04/19/25 07:01 04/19/25 08:50 Pulse Rate 117 H 117 H Respiratory Rate 8 L 11 L Blood Pressure 162/78 H Pulse Oximetry Oxygen Delivery Method Oxygen Flow Rate 04/19/25 09:00 04/19/25 09:04 04/19/25 09:05 Pulse Rate 96 H 95 H Respiratory Rate 15 15 Blood Pressure Pulse Oximetry 96 96 Oxygen Delivery Method Mechanical Ventilation Oxygen Flow Rate 04/19/25 09:10 04/19/25 09:15 04/19/25 09:20 Pulse Rate 93 H 94 H 93 H Respiratory Rate 15 15 15 Blood Pressure Pulse Oximetry 96 95 96 Oxygen Delivery Method Oxygen Flow Rate 04/19/25 09:25 04/19/25 09:30 04/19/25 09:35 Pulse Rate 94 H 93 H 93 H Respiratory Rate 15 15 15 Blood Pressure Pulse Oximetry 96 96 96 Oxygen Delivery Method Oxygen Flow Rate 04/19/25 09:40 04/19/25 09:45 04/19/25 09:50 Pulse Rate 94 H 93 H 93 H Respiratory Rate 15 15 15 Blood Pressure Pulse Oximetry 96 96 96 Oxygen Delivery Method Oxygen Flow Rate 04/19/25 09:55 04/19/25 10:00 04/19/25 10:05 Pulse Rate 91 H 93 H 92 H Respiratory Rate 15 15 15 Blood Pressure Pulse Oximetry 96 96 96 Oxygen Delivery Method Oxygen Flow Rate 04/19/25 10:10 04/19/25 10:15 04/19/25 10:20 Pulse Rate 92 H 92 H 92 H Respiratory Rate 15 15 15 Blood Pressure Pulse Oximetry 96 96 96 Oxygen Delivery Method Oxygen Flow Rate 04/19/25 10:25 04/19/25 10:30 04/19/25 10:35 Pulse Rate 91 H 90 91 H Respiratory Rate 15 15 15 Blood Pressure Pulse Oximetry 97 96 97 Oxygen Delivery Method Oxygen Flow Rate 04/19/25 10:40 04/19/25 10:45 04/19/25 10:50 Pulse Rate 91 H 91 H 92 H Respiratory Rate 15 15 15 Blood Pressure Pulse Oximetry 96 96 96 Oxygen Delivery Method Oxygen Flow Rate 04/19/25 10:55 04/19/25 11:00 04/19/25 11:00 Pulse Rate 92 H 92 H Respiratory Rate 15 15 Blood Pressure Pulse Oximetry 96 97 Oxygen Delivery Method Mechanical Ventilation Oxygen Flow Rate 04/19/25 11:05 04/19/25 11:10 04/19/25 11:15 Pulse Rate 92 H 92 H 92 H Respiratory Rate 15 15 15 Blood Pressure Pulse Oximetry 97 97 97 Oxygen Delivery Method Oxygen Flow Rate 04/19/25 11:20 04/19/25 11:25 04/19/25 11:30 Pulse Rate 92 H 91 H 91 H Respiratory Rate 15 15 15 Blood Pressure Pulse Oximetry 97 97 97 Oxygen Delivery Method Oxygen Flow Rate 04/19/25 11:35 04/19/25 11:40 04/19/25 11:45 Pulse Rate 91 H 92 H 92 H Respiratory Rate 15 18 15 Blood Pressure Pulse Oximetry 97 96 95 Oxygen Delivery Method Oxygen Flow Rate 04/19/25 11:50 04/19/25 11:55 04/19/25 12:00 Pulse Rate 92 H 91 H 91 H Respiratory Rate 15 15 15 Blood Pressure Pulse Oximetry 96 96 96 Oxygen Delivery Method Oxygen Flow Rate 04/19/25 12:05 04/19/25 12:10 04/19/25 12:15 Pulse Rate 91 H 91 H 91 H Respiratory Rate 15 15 15 Blood Pressure Pulse Oximetry 96 96 96 Oxygen Delivery Method Oxygen Flow Rate 04/19/25 12:20 04/19/25 12:25 04/19/25 12:30 Pulse Rate 92 H 90 92 H Respiratory Rate 15 15 15 Blood Pressure Pulse Oximetry 96 96 96 Oxygen Delivery Method Oxygen Flow Rate 04/19/25 12:35 04/19/25 12:37 04/19/25 12:37 Pulse Rate 92 H 92 H Respiratory Rate 15 15 Blood Pressure 166/87 H Pulse Oximetry 97 97 Oxygen Delivery Method Oxygen Flow Rate 04/19/25 12:40 04/19/25 12:45 04/19/25 12:50 Pulse Rate 92 H 92 H 91 H Respiratory Rate 15 15 15 Blood Pressure Pulse Oximetry 97 96 97 Oxygen Delivery Method Oxygen Flow Rate 04/19/25 12:55 04/19/25 13:00 04/19/25 13:00 Pulse Rate 91 H 90 Respiratory Rate 15 15 Blood Pressure 142/77 H Pulse Oximetry 97 97 Oxygen Delivery Method Oxygen Flow Rate 04/19/25 13:05 04/19/25 13:10 04/19/25 13:15 Pulse Rate 87 86 85 Respiratory Rate 15 15 15 Blood Pressure Pulse Oximetry 96 96 96 Oxygen Delivery Method Oxygen Flow Rate 04/19/25 13:20 04/19/25 13:25 04/19/25 13:30 Pulse Rate 86 86 85 Respiratory Rate 15 15 15 Blood Pressure Pulse Oximetry 96 96 97 Oxygen Delivery Method Oxygen Flow Rate 04/19/25 13:30 04/19/25 14:00 04/19/25 14:00 Pulse Rate 85 Respiratory Rate 15 Blood Pressure 142/81 H 148/77 H Pulse Oximetry 97 Oxygen Delivery Method Oxygen Flow Rate Oxygen Delivery Method Mechanical Ventilation Oxygen Flow Rate 4 Objective Labs 04/19/25 04:23 04/19/25 09:18 Labs: Laboratory Results - last 24 hr 04/18/25 04/18/25 04/18/25 13:30 13:30 13:40 WBC 11.4 H RBC 5.71 Hgb 15.5 Hct 48.7 MCV 85.2 MCH 27.2 MCHC 31.9 RDW 13.9 Plt Count 344 Neut % (Auto) 86.1 H Lymph % (Auto) 4.8 L [place] % (Auto) 8.6 Eos % (Auto) 0.0 L Baso % (Auto) 0.5 Neut # (Auto) 9800 H Lymph # (Auto) 500 L [place] # (Auto) 1000 H Eos # (Auto) 0 Baso # (Auto) 100 Total Counted Seg Neutrophils % Band Neutrophils % Lymphocytes % (Manual) Monocytes % (Manual) Metamyelocytes % Neutrophils # (Manual) RBC Morphology PT 11.0 INR 1.0 APTT 31 ABG Sample Site ABG pH ABG pCO2 ABG pO2 ABG HCO3 ABG Total CO2 ABG O2 Saturation ABG Base Excess Nakul Test VBG pH VBG pCO2 VBG pO2 VBG HCO3 VBG Total CO2 VBG O2 Saturation VBG Base Excess Respiration Rate O2 Delivery Device Mode of Support FiO2 % PEEP or CPAP Sodium Potassium Chloride Carbon Dioxide BUN Creatinine Estimated GFR BUN/Creatinine Ratio Glucose Lactate 5.0 H* Calcium Total Bilirubin Conjugated Bilirubin Unconjugated Bilirubin AST ALT Alkaline Phosphatase Ammonia Total Creatine Kinase 6660 H Cancelled Troponin I 0.086 H Total Protein Albumin Globulin Albumin/Globulin Ratio Lipase Procalcitonin 3.41 H TSH Nasal Screen MRSA (PCR) Salicylates U Opiates 300ng/mL cut Ur Oxycodone Screen Urine Methadone Screen Acetaminophen Ur Barbiturates Screen U Tricyclic Antidepress Ur Phencyclidine Scrn Ur Amphetamines Screen U Methamphetamines Scrn Ur MDMA Scrn (Ecstasy) U Benzodiazepines Scrn Urine Cocaine Screen U Marijuana (THC) Screen Urine pH Urine Specific [place] Ethyl Alcohol < 10 Ur Creatinine Hep Bs Antigen Hepatitis C Antibody Blood Type B Positive Antibody Screen Negative 04/18/25 04/18/25 04/18/25 13:53 14:10 14:15 WBC RBC Hgb Hct MCV MCH MCHC RDW Plt Count Neut % (Auto) Lymph % (Auto) Gran[place] % (Auto) Eos % (Auto) Baso % (Auto) Neut # (Auto) Lymph # (Auto) [place] # (Auto) Eos # (Auto) Baso # (Auto) Total Counted Seg Neutrophils % Band Neutrophils % Lymphocytes % (Manual) Monocytes % (Manual) Metamyelocytes % Neutrophils # (Manual) RBC Morphology PT INR APTT ABG Sample Site ABG pH ABG pCO2 ABG pO2 ABG HCO3 ABG Total CO2 ABG O2 Saturation ABG Base Excess Nakul Test VBG pH VBG pCO2 VBG pO2 VBG HCO3 VBG Total CO2 VBG O2 Saturation VBG Base Excess Respiration Rate O2 Delivery Device Mode of Support FiO2 % PEEP or CPAP Sodium 143 Potassium 5.2 H Chloride 105 Carbon Dioxide 16 L BUN 31 H Creatinine 2.10 H Estimated GFR 35 L BUN/Creatinine Ratio 14.8 Glucose 100 H Lactate Calcium 8.6 Total Bilirubin 0.6 Conjugated Bilirubin Unconjugated Bilirubin AST 128 H ALT 74 H Alkaline Phosphatase 73 Ammonia 86 H Total Creatine Kinase Troponin I Total Protein 8.1 Albumin 4.8 Globulin 3.3 Albumin/Globulin Ratio 1.5 Lipase 103 Procalcitonin TSH Nasal Screen MRSA (PCR) Salicylates U Opiates 300ng/mL cut Positive H Ur Oxycodone Screen Negative Urine Methadone Screen Positive H Acetaminophen Ur Barbiturates Screen Negative U Tricyclic Antidepress Negative Ur Phencyclidine Scrn Negative Ur Amphetamines Screen Positive H U Methamphetamines Scrn Positive H Ur MDMA Scrn (Ecstasy) Positive H U Benzodiazepines Scrn Negative Urine Cocaine Screen Negative U Marijuana (THC) Screen Negative Urine pH Normal Urine Specific [place] Normal Ethyl Alcohol Ur Creatinine Normal Hep Bs Antigen Hepatitis C Antibody Blood Type Antibody Screen 04/18/25 04/18/25 04/18/25 14:17 14:39 15:47 WBC RBC Hgb Hct MCV MCH MCHC RDW Plt Count Neut % (Auto) Lymph % (Auto) [place] % (Auto) Eos % (Auto) Baso % (Auto) Neut # (Auto) Lymph # (Auto) [place] # (Auto) Eos # (Auto) Baso # (Auto) Total Counted Seg Neutrophils % Band Neutrophils % Lymphocytes % (Manual) Monocytes % (Manual) Metamyelocytes % Neutrophils # (Manual) RBC Morphology PT INR APTT ABG Sample Site Right radial ABG pH 7.21 L* ABG pCO2 46.8 H ABG pO2 55 L ABG HCO3 19 L ABG Total CO2 18 L ABG O2 Saturation 81 L* ABG Base Excess -9.0 L Nakul Test Yes, passed VBG pH 7.14 L* VBG pCO2 57.1 H VBG pO2 39 VBG HCO3 19 L VBG Total CO2 19 L VBG O2 Saturation 56 L VBG Base Excess -10.5 L Respiration Rate O2 Delivery Device Mode of Support FiO2 % PEEP or CPAP Sodium Potassium Chloride Carbon Dioxide BUN Creatinine Estimated GFR BUN/Creatinine Ratio Glucose Lactate 2.1 Calcium Total Bilirubin Conjugated Bilirubin Unconjugated Bilirubin AST ALT Alkaline Phosphatase Ammonia Total Creatine Kinase Troponin I Total Protein Albumin Globulin Albumin/Globulin Ratio Lipase Procalcitonin TSH Nasal Screen MRSA (PCR) Salicylates U Opiates 300ng/mL cut Ur Oxycodone Screen Urine Methadone Screen Acetaminophen Ur Barbiturates Screen U Tricyclic Antidepress Ur Phencyclidine Scrn Ur Amphetamines Screen U Methamphetamines Scrn Ur MDMA Scrn (Ecstasy) U Benzodiazepines Scrn Urine Cocaine Screen U Marijuana (THC) Screen Urine pH Urine Specific [place] Ethyl Alcohol Ur Creatinine Hep Bs Antigen Hepatitis C Antibody Blood Type Antibody Screen 04/18/25 04/19/25 04/19/25 23:12 02:12 04:23 WBC 9.3 RBC 4.95 Hgb 13.8 Hct 42.0 MCV 84.9 MCH 27.8 MCHC 32.8 RDW 14.0 Plt Count 254 Neut % (Auto) Not Reportable Lymph % (Auto) Not Reportable Granite % (Auto) Not Reportable Eos % (Auto) Not Reportable Baso % (Auto) Not Reportable Neut # (Auto) Lymph # (Auto) Not Reportable [place] # (Auto) Not Reportable Eos # (Auto) Baso # (Auto) Not Reportable Total Counted 100 Seg Neutrophils % 50.0 Band Neutrophils % 26.0 H Lymphocytes % (Manual) 7.0 L Monocytes % (Manual) 15.0 H Metamyelocytes % 2.0 H Neutrophils # (Manual) 7068 H RBC Morphology Normal morphology PT 12.3 INR 1.1 APTT ABG Sample Site Right radial ABG pH 7.22 L* ABG pCO2 49.9 H ABG pO2 83 ABG HCO3 21 L ABG Total CO2 20 L ABG O2 Saturation 94 L ABG Base Excess -7.4 L Nakul Test Positive VBG pH VBG pCO2 VBG pO2 VBG HCO3 VBG Total CO2 VBG O2 Saturation VBG Base Excess Respiration Rate O2 Delivery Device Cannula Mode of Support FiO2 % 45 % PEEP or CPAP Sodium 144 Potassium 5.1 Chloride 108 H Carbon Dioxide 19 L BUN 41 H Creatinine 3.31 H Estimated GFR 20 L BUN/Creatinine Ratio 12.4 Glucose 78 Lactate Calcium 7.8 L Total Bilirubin 0.7 Conjugated Bilirubin Unconjugated Bilirubin AST 544 H ALT 158 H Alkaline Phosphatase 64 Ammonia Total Creatine Kinase Troponin I Total Protein 7.6 Albumin 4.4 Globulin 3.2 Albumin/Globulin Ratio 1.4 Lipase Procalcitonin TSH Nasal Screen MRSA (PCR) Not detected Salicylates U Opiates 300ng/mL cut Ur Oxycodone Screen Urine Methadone Screen Acetaminophen Ur Barbiturates Screen U Tricyclic Antidepress Ur Phencyclidine Scrn Ur Amphetamines Screen U Methamphetamines Scrn Ur MDMA Scrn (Ecstasy) U Benzodiazepines Scrn Urine Cocaine Screen U Marijuana (THC) Screen Urine pH Urine Specific [place] Ethyl Alcohol Ur Creatinine Hep Bs Antigen Hepatitis C Antibody Blood Type Antibody Screen 04/19/25 04/19/25 04/19/25 06:45 09:18 09:20 WBC RBC Hgb Hct MCV MCH MCHC RDW Plt Count Neut % (Auto) Lymph % (Auto) [place] % (Auto) Eos % (Auto) Baso % (Auto) Neut # (Auto) Lymph # (Auto) [place] # (Auto) Eos # (Auto) Baso # (Auto) Total Counted Seg Neutrophils % Band Neutrophils % Lymphocytes % (Manual) Monocytes % (Manual) Metamyelocytes % Neutrophils # (Manual) RBC Morphology PT INR APTT ABG Sample Site ABG pH 7.31 L ABG pCO2 36.2 ABG pO2 105 H ABG HCO3 18 L ABG Total CO2 18 L ABG O2 Saturation 98 ABG Base Excess -7.4 L Nakul Test N/a VBG pH VBG pCO2 VBG pO2 VBG HCO3 VBG Total CO2 VBG O2 Saturation VBG Base Excess Respiration Rate 15 O2 Delivery Device Adult ventilator Mode of Support Assist cont ventilat FiO2 % 50.0 % PEEP or CPAP 5 Sodium Potassium 4.8 Chloride Carbon Dioxide BUN Creatinine Estimated GFR BUN/Creatinine Ratio Glucose Lactate Calcium Total Bilirubin Cancelled Conjugated Bilirubin Cancelled Unconjugated Bilirubin Cancelled AST Cancelled ALT Cancelled Alkaline Phosphatase Cancelled Ammonia Total Creatine Kinase 72518 H D Troponin I Total Protein Cancelled Albumin Cancelled Globulin Cancelled Albumin/Globulin Ratio Cancelled Lipase Procalcitonin TSH 0.90 Nasal Screen MRSA (PCR) Salicylates < 1.0 U Opiates 300ng/mL cut Ur Oxycodone Screen Urine Methadone Screen Acetaminophen < 10 Ur Barbiturates Screen U Tricyclic Antidepress Ur Phencyclidine Scrn Ur Amphetamines Screen U Methamphetamines Scrn Ur MDMA Scrn (Ecstasy) U Benzodiazepines Scrn Urine Cocaine Screen U Marijuana (THC) Screen Urine pH Urine Specific [place] Ethyl Alcohol Ur Creatinine Hep Bs Antigen Negative Hepatitis C Antibody Negative Blood Type Antibody Screen PFSH Social History household members: spouse Smoking Status: Unknown if ever smoked Discharge Plan Discharge Plan Other facility: [facility] Discharge orders & Medications Discharge Orders: Discharge (Order); Ordered 04/19/25 Ordered By: Mo Morrison Prescriptions: No Action No Known Home Medications Quality VTE Deep Vein Thrombosis/Pulmonary Embolism Present on Admission: No
[2025-04-19] MEDS: NOREPINEPHRINE BIT/0.9 % NACL 4 MG/250 ML PLAST..BAG 18.923 MG IV (16:27)
--- NOTE | 2025-04-19 17:43 | PC.NURSE ---
Addendum entered by Cecille Greenfield RN 04/19/25 18:23: PER DR MARES ICU TELE FOOD MIXER RECOMMENDING TRANSFER PT TO HIGHER LEVEL OF CARE FOR NEUROLOGY, AND NEPHROLOGY. DOCTOR TO DOCTOR CONVERSATION WITH DR NIELSON, COORDINATOR ARCADIO UPDATED AND TO START TRANSFER PROCEDURES. PT ACCEPTED TO [facility] ROOM 918 REPORT CALLED TO FRANCISCO RN @ [phone] EXT [id number] AIRLIFT ARRIVED 1600 REPORT PROVIDED TO TRANSPORT TEAM, ALL DRIPS WENT WITH TRANSPORT TEAM FOR SUPPORT DURING TRANSPORT, PT TRANSPORTED WITH RESTRAINTS IN PLACE TO PREVENT PULLING AND LINES/REMOVING ETT DURING TRANSPORT. UPDATED TEODORA ON TRANSPORT, FACILITY AND ROOM INFORMATION 1640 TRANSPORT TEAM LEFT WITH PATIENT, NO FURTHER PT CONTACT. Original Note: EVENT NOTE: THIS NURSE ARRIVED ON SHIFT AT 0645, NOTED PT IN ROOM 229 WITH BESIDE NURSE, PT SOMNOLENT, RR 4 GCS APPROX 4 WITH WITH BEDSIDE NURSE STATING THAT PT HAS NO GAG REFLEX WITH FREQUENT SUCTIONING NECESSARY TO MANAGE SECRETIONS. THIS NURSE SPOKE TO ONCOMING COORDINATOR ARCADIO, NOC BLOOD BANK ASSISTANT STEPHON AND DR NIELSON REGARDING PT PROTECTING AIRWAY, IT WAS DETERMINED THAT PT WOULD NEED TO BE INTUBATED FOR PROTECTION OF AIRWAY. ARCADIO CALLED ANESTHESIA AND WE PREPPED FOR INTUBATION. 0715 KEYA RIZO SINGLE SPINDLE SCREW MACHINE OPERATOR AT BEDSIDE VS HR 118, BP 131/84 RR 8 O2 96% PREOXYGENATED BY SINGLE SPINDLE SCREW MACHINE OPERATOR, CONFIRMED NO GAG REFLEX 0717 PROPOFOL INFUSING AT 5MCG/KG/MIN, IVF FREE FLOWING, 110 MCG SUCCS IVP 0725 ETT PLACED, 7.5 23@ TEETH, CONFIRMATION BY COLOR CHANGE END TIDAL FOR PLACEMENT 0728 VS HR 105 BP 115/69 RR 15 100% BAGGED 0730 CONNECTED TO VENT BP 101/59, VENT SETTINGS FIO2 50% TV 520 PEEP 5 RR 15 SINGLE SPINDLE SCREW MACHINE OPERATOR ORDERED NOREPI PRIOR TO ADDITIONAL SEDATION, ART-LINE AND CENTRAL LINE PLACEMENT 0735 VS HR 106 BP 94/52 RR 15 94% ON CURRENT VENT SETTINGS 0740 STARTED NOREPI (SEE EMAR FOR DOCUMENTATION) 0745 VS HR 105 BP 98/54 RR 15 94% STARTED VERSED (SEE EMAR FOR DOCUMENTATION) 0746 ART LINE PLACED 0812 CENTRAL LINE PLACED VS HR 105 BP 140/66 ARTLINE 162/81 O2 96% 0817 PROPOFOL INCREASED (SEE EMAR FOR DOCUMENTATION) 0828 OG TUBE PLACED 0830 XRAY CONFIRMATION FOR CENTRAL LINE PLACEMENT, OG PLACEMENT, ETT PLACEMENT MARIAM SHEN AT BEDSIDE, TEODORA ON THE PHONE FROM [place], UPDATED FAMILY, CALL LIGHT WITHIN REACH, CARE ONGOING
[2025-04-23 11:09] LABS: Legionella pneumo Antigen Negative (Negative)
== END 2025-04-19 16:41 | disposition short-term general hospital (02) | DRG 871 ==
LOC: ED 15:19 → AC 16:35 → ICU 04-19 01:24
PROVIDERS: Anesthesiology Critical Care Medicine; Emergency Medicine; Internal Medicine; Admitting Provider Internal Medicine; Emergency Provider Emergency Medicine; Referring Provider Emergency Medicine; Visit Provider Internal Medicine
DX: A41.9 Sepsis, unspecified organism (principal); G92.9 Unspecified toxic encephalopathy; J69.0 Pneumonitis due to inhalation of food and vomit; G93.41 Metabolic encephalopathy; J18.9 Pneumonia, unspecified organism; M62.82 Rhabdomyolysis; N17.9 Acute kidney failure, unspecified; K92.0 Hematemesis; K76.82 Hepatic encephalopathy; R94.31 Abnormal electrocardiogram [ECG] [EKG]; F10.90 Alcohol use, unspecified, uncomplicated; F11.90 Opioid use, unspecified, uncomplicated; F15.90 Other stimulant use, unspecified, uncomplicated; R09.02 Hypoxemia
CPT/HCPCS: 36415; 36600; 70450; 70496; 70498; 71045; 71260; 72125; 74177; 80053; 80305; 80320; 80329; 82140; 82550; 82805; 83605; 83690; 84132; 84145; 84443; 84484; 85007; 85025; 85610; 85730; 86803; 86850; 86900; 86901; 87040; 87340; 87449; 87797; 87899; 93005; 93010; 94002; 94762; 94799; 96361; 96365; 96366; 96372; 96375; 99285; 99291; G0480; J0165; J0330; J1630; J2060; J2250; J2470; J2543; J2560; J2704; J7030; J7050; Q9967